=== PATIENT | female | born 1935 | race Caucasian/White ===

== ENCOUNTER → 2016-10-09 | Outpatient (CLI) | payer BC ==
[2016-10-09 15:32] LABS: BLOOD UREA NITROGEN 14 mg/dl (7-18); BUN/CREATININE RATIO 22.3 (10-20); CALCIUM 8.8 mg/dl (8.5-10.1); CARBON DIOXIDE 29 mmol/L (21-32); CHLORIDE 101 mmol/L (98-107); CREATININE 0.62 mg/dl (0.60-1.20); GLUCOSE 90 mg/dl (70-99); POTASSIUM 4.2 mmol/L (3.5-5.1); SODIUM 138 mmol/L (136-145)
== END | disposition home or self-care (01) ==
LOC: C.LABBC 11:54
PROVIDERS: ATTEND Internal Medicine Geriatric Medicine
DX: I10 Essential (primary) hypertension (principal)

== ENCOUNTER → 2016-10-13 | Outpatient (CLI) | payer BC ==
--- NOTE | 2016-10-13 11:51 | DIAGNOSTIC IMAGING REPORT ---
Right upper quadrant ultrasound BILIARY ABDOMEN LIMITED CLINICAL HISTORY: I73.9 Claudication Try to schedule all US around the same time pl TECHNIQUE: Ultrasound COMPARISON STUDY: 05/04/2016 FINDINGS: Similar appearance to the gallbladder. Combination of polyps sludge in adenomyomatosis. No pericholecystic fluid. A 1.3 cm polyp and/or sludge ball is present which is unchanged. Ductal system is unremarkable. Liver is homogeneous. Pancreas is unremarkable. Right kidney is negative for hydronephrosis. Several cysts are present measuring up to 2.8 cm. IMPRESSION: 1. Unchanging abnormal gallbladder. 2. Combination of polypoid change, sludge balls, and adenomyomatosis unchanged compared to the prior study. 3. Normal caliber bile ducts. 4. Several right renal cysts stable from the prior exam. Electronically signed by: Papo Coronado M.D. 10/13/2016 11:49 AM Dictated Date/Time: 10/13/2016 11:45 AM
--- NOTE | 2016-10-13 12:49 | DIAGNOSTIC IMAGING REPORT ---
ULTRASOUND ART DOP LOWER EXT BILAT CLINICAL HISTORY: I73.9 Claudication Try to schedule all US around the same time pl claudication COMPARISON STUDY: None FINDINGS: Real-time as well as Doppler evaluation of the arterial structures of the lower legs was performed. Waveforms are triphasic throughout. Velocity characteristics are unremarkable. Moderate arterial sclerotic changes of the right leg. Waveforms are biphasic throughout. Velocity characteristics are unremarkable. There are monophasic waveforms in dampened flow characteristics of the entire left leg. Suggests inflow disease. The following blood pressure indices were obtained. On the right, posterior tibial is 0.89 and dorsalis pedis is 0.96. On the left, posterior tibial is 0.40 and dorsalis pedis is 0.41. IMPRESSION: 1. Moderate multilevel are clear arterial occlusive change of the right leg with no significant or high-grade stenotic process. 2. Dampened flow throughout the arterial structures of the left leg suggesting a combination of inflow disease as well as significant multilevel arterial occlusive change Electronically signed by: Papo Coronado M.D. 10/13/2016 12:47 PM Dictated Date/Time: 10/13/2016 12:40 PM
== END | disposition home or self-care (01) ==
LOC: C.ULTR 11:07
PROVIDERS: ATTEND Internal Medicine Geriatric Medicine
DX: I73.9 Peripheral vascular disease, unspecified (principal); R10.9 Unspecified abdominal pain; K82.4 Cholesterolosis of gallbladder; D13.5 Benign neoplasm of extrahepatic bile ducts; N28.1 Cyst of kidney, acquired

== ENCOUNTER → 2017-02-16 | Outpatient (CLI) | payer BC ==
[2017-02-16 17:17] LABS: ALT/SGPT 30 U/L (12-78); AST/SGOT 43 U/L (15-37); BLOOD UREA NITROGEN 12 mg/dl (7-18); BUN/CREATININE RATIO 21.9 (10-20); CALCIUM 8.7 mg/dl (8.5-10.1); CARBON DIOXIDE 29 mmol/L (21-32); CHLORIDE 103 mmol/L (98-107); CREATININE 0.56 mg/dl (0.60-1.20); GLUCOSE 86 mg/dl (70-99); POTASSIUM 3.9 mmol/L (3.5-5.1); SODIUM 137 mmol/L (136-145)
[2017-02-16 17:20] LABS: ALB/GLOB RATIO 0.8 (0.9-2); ALKALINE PHOSPHATASE 80 U/L (45-117); CHOLESTEROL 166 mg/dl (0-200); CHOLESTEROL/HDL RATIO 2.2; HDL CHOLESTEROL 76 mg/dl; LDL CHOLESTEROL CALCULATED 70 mg/dl; TRIGLYCERIDES 102 mg/dl (0-150); VERY LOW DENSITY LIPOPROT CALC 20 mg/dl
[2017-02-17 07:47] LABS: ESTIMATED AVERAGE GLUCOSE 120 mg/dl; HA1C FLAG Normal (Normal)
== END | disposition home or self-care (01) ==
LOC: C.LABBC 12:51
PROVIDERS: ATTEND Physician Assistant Medical
DX: I10 Essential (primary) hypertension (principal); E78.5 Hyperlipidemia, unspecified; E87.1 Hypo-osmolality and hyponatremia; E55.9 Vitamin D deficiency, unspecified; R73.9 Hyperglycemia, unspecified

== ENCOUNTER → 2017-02-19 | Outpatient (CLI) | payer BC ==
--- NOTE | 2017-02-20 14:35 | MAMMOGRAPHY REPORT ---
BILATERAL DIGITAL SCREENING MAMMOGRAM WITH CAD: 02/19/2017 CLINICAL HISTORY: Routine screening examination. TECHNIQUE: Bilateral CC and MLO views were obtained. Current study was also evaluated with a Compute r Aided Detection (CAD) system. COMPARISON: Comparison is made to exams dated: 02/18/2016 mammogram, 02/15/2015 mammogram, 02/13/2014 ma mmogram, 02/12/2013 mammogram, 02/12/2012 mammogram, and 02/10/2011 mammogram - [facility] BREAST COMPOSITION: There are scattered areas of fibroglandular density in both breasts. FINDINGS: There are diffuse bilateral benign coarse calcifications. No suspicious mass, architectura l distortion or cluster of microcalcifications is seen. IMPRESSION: ACR BI-RADS CATEGORY 1: NEGATIVE There is no mammographic evidence of malignancy. A 1 year screening mammogram is recommended. The pa tient will receive written notification of the results. Approximately 10% of breast cancers are not detected with mammography. A negative mammographic report should not delay biopsy if a clinically suggestive mass is present. Essence Oleary M.D. ay/:02/19/2017 14:40:39 Nca Certified Concierge: Jane HERNANDEZ(R)(M), [facility] letter sent: Normal 1/2 BI-RADS Code: ACR BI-RADS Category 1: Negative
== END | disposition home or self-care (01) ==
LOC: C.MAMM 14:13
PROVIDERS: ATTEND Internal Medicine Geriatric Medicine
DX: Z12.31 Encounter for screening mammogram for malignant neoplasm of breast (principal)

== ENCOUNTER → 2017-03-07 | Outpatient (CLI) | payer BC ==
[~2017-03-07] MED LIST: GADAVIST IV PRN
--- NOTE | 2017-03-07 13:22 | DIAGNOSTIC IMAGING REPORT ---
LUMBAR SPINE COMBINATION CLINICAL HISTORY: 81 years-old Female with M48.06 Neurogenic claudication. Patient complains of low back and leg pain with occasional numbness. COMPARISON: CT abdomen and pelvis 05/17/2016. TECHNIQUE: Multiplanar, multi sequence MRI of the lumbar spine was performed both with and without the use of 6 mL Gadavist. FINDINGS: Signal within the cord is within normal limits. Conus medullaris terminates at L1. There is 4 mm anterolisthesis of L3 on L4, likely on a degenerative basis. There is no focal compression deformity or fracture identified. Subtle Modic type I endplate changes are noted along the left aspect of L1-L2. No sacral fracture identified. Prominent fatty marrow changes are noted throughout the bones, likely from underlying osteopenia or osteoporosis. Probable perineural root sleeve cyst is seen in the left at S2 measuring up to 1.3 cm in craniocaudal dimension. T2 hyperintense lesions of the kidneys are noted bilaterally, largest in the right measuring up to 3.2 cm in largest the left, 1.7 cm which are nonspecific however would suggest cysts. There is a focal ill-defined area of intermediate T2 signal, decreased T1 signal and avid enhancement involving the posterior inferior right iliac bone, only partially imaged demonstrating ill-defined margins suggesting aggressive nature. Nicely seen on image 30 of series 9. No additional enhancing masses are identified. T12-L1: No central canal or neural foraminal stenosis. Moderate facet arthrosis. L1-L2: Mild intervertebral disc space narrowing with moderate facet arthropathy, small facet effusions and ligamentum flavum redundancy are noted with broad-based posterior disc bulge. No central canal or foraminal narrowing. L2-L3: Mild intervertebral disc space narrowing with posterior spondylitic spurring and circumferential annular disc bulge. Additionally, there is severe facet arthrosis with ligamentum flavum redundancy and small facet effusions. These changes cause mild central canal and mild inferior foraminal stenosis bilaterally. L3-L4: 4 mm anterolisthesis of L3 on L4 secondary to severe facet arthrosis. Additionally, there is ligamentum flavum redundancy with circumferential annular disc bulge and disc uncovering. No significant central canal or foraminal narrowing. L4-L5: Mild intervertebral disc space narrowing with severe facet arthrosis and ligamentum flavum redundancy. Broad-based posterior disc bulge partially effaces the ventral thecal sac without significant central canal narrowing. There is mild inferior right foraminal stenosis. The left foramen is patent. L5-S1: No central canal or neural foraminal stenosis. Severe facet arthropathy IMPRESSION: 1. Partially imaged avidly enhancing lesion of the posterior inferior right iliac bone is nonspecific and appears aggressive. This is new from comparison CT dated 05/17/2016. Differential considerations would include metastasis or multiple myeloma among other etiologies. Further evaluation with a sacral contrast enhanced MRI would be helpful to evaluate extent of the lesion. 2. Multilevel severe facet arthrosis with mild discogenic degenerative changes as detailed above. Findings are most pronounced at the L2-L3 level where there is resultant mild central canal and mild inferior foraminal stenosis bilaterally. 3. Subtle Modic type I endplate degenerative changes are noted along the left aspect of the L1-L2 disc space. 4. Partially imaged T2 hyperintense lesions of the bilateral kidneys suggest cysts. The above report was generated using voice recognition software. It may contain grammatical, syntax or spelling errors. Electronically signed by: Jabier Alvarez M.D. 03/07/2017 1:20 PM Dictated Date/Time: 03/07/2017 12:48 PM
== END | disposition home or self-care (01) ==
LOC: C.MRIBC 11:27
PROVIDERS: ATTEND Internal Medicine Geriatric Medicine
DX: M48.06 Spinal stenosis, lumbar region (principal); M47.816 Spondylosis without myelopathy or radiculopathy, lumbar region

== ENCOUNTER → 2017-03-21 | Outpatient (CLI) | payer BC ==
--- NOTE | 2017-03-21 15:51 | DIAGNOSTIC IMAGING REPORT ---
SACRUM MRI HISTORY: Abnormal lumbar spine MRI. Posterior iliac lesion. TECHNIQUE: Multiplanar multisequence MRI of the posterior pelvis was performed both before and after the intravenous administration of contrast. COMPARISON STUDY: Lumbar spine MRI 03/07/2017. FINDINGS: The visualized osseous structures demonstrate diffuse marrow heterogeneity. There is confirmation of the 3.2 x 1.3 cm T2 hyperintense, T1 hypointense enhancing ill-defined lesion within the right posterior iliac bone. There is no cortical breakthrough or surrounding soft tissue mass at this time. There is suggestion of avascular necrosis within the right femoral head. This only partially visualized on this study. Small right hip effusion. Possible 1.3 cm T2 hyperintense lesion within the right greater trochanter. This is only identified on a single sequence. IMPRESSION: 1. Confirmation of the 3.2 x 1.3 cm enhancing ill-defined lesion within the right posterior iliac bone. There is no cortical breakthrough or surrounding soft tissue mass at this time. This is indeterminate but in the absence of prior surgery this is concerning for a metastatic lesion. 2. There is a possible 1.3 cm T2 hyperintense lesion within the right greater trochanter. This is only partially visualized on this study. A bone scan is recommended for further evaluation of these lesions. 3. 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 Electronically signed by: Tremaine Cedeno M.D. 03/21/2017 3:50 PM Dictated Date/Time: 03/21/2017 3:40 PM
== END | disposition home or self-care (01) ==
LOC: C.MRI 13:22
PROVIDERS: ATTEND Internal Medicine Geriatric Medicine
DX: M53.3 Sacrococcygeal disorders, not elsewhere classified (principal)

== ENCOUNTER → 2017-06-18 | Outpatient (CLI) | payer BC ==
--- NOTE | 2017-06-18 11:58 | DIAGNOSTIC IMAGING REPORT ---
PET/CT SKULL-THIGH CLINICAL HISTORY: MALIGNANT NEOPLASM BONE lymphoma COMPARISON STUDY: Pelvic MRI dated 03/21/2017 FINDINGS: The patient was injected with 14.3 mCi of F 18 labeled FDG. Findings standard induction phase, PET/CT scanning is performed from the skull base to the upper thigh region. Within the neck, there is a focus of increased FDG activity fusing to a 1 cm left-sided parotid nodule. This has an SUV maximum of 2.4. There is also mild asymmetric increased activity in the region of the right posterior nasopharynx. Left mandibular uptake is felt to be secondary to dental disease. Activity within neck is otherwise felt to be physiologic. Within the chest, there is no pathologic axillary mediastinal or hilar activity. There is pulmonary emphysema. There is no pathologic parenchymal activity. There is a focus of increased activity fusing to the right medial clavicle with SUV maximum of 3.7. There is no corresponding CT abnormality. There is a focus of increased activity fusing to the left T11 transverse process. There is no corresponding CT abnormality. Within the abdomen, there is no pathologic hepatic splenic or adrenal activity. There are multiple bilateral renal masses likely representing cysts. There is cholelithiasis. 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 There is a focus of increased FDG activity fusing to the right anterior iliac bone with SUV maximum of 4. There is a focus of increased FDG activity fusing to the right posterior iliac bone with SUV maximum of 2.7. There is a focus of increased FDG activity fusing to the left anterior iliac bone with SUV maximum of 2.3. There is intense focus of increased activity fusing to the left iliac bone adjacent to the SI joint with an SUV max of 6.2. There is also a focus of increased activity fusing to the greater trochanter the right hip with an SUV maximum of 3.9 IMPRESSION: 1. Mild nonspecific increased activity within the right posterior nasopharynx 2. Mildly FDG avid 1 cm left parotid nodule with SUV maximum of 2.4 3. Foci of increased skeletal activity. These involve the right medial clavicle, the left T11 transverse process, both iliac bones, and the greater trochanter the right hip. 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 Electronically signed by: Shaggy Adrian M.D. 06/18/2017 11:57 AM Dictated Date/Time: 06/18/2017 11:38 AM
== END | disposition home or self-care (01) ==
LOC: C.PET 09:09
PROVIDERS: ATTEND Internal Medicine Hematology & Oncology
DX: C41.4 Malignant neoplasm of pelvic bones, sacrum and coccyx (principal)

== ENCOUNTER → 2017-06-20 | Outpatient (CLI) | payer BC ==
[2017-06-20 17:24] LABS: BASO ABS # 0.07 K/uL (0-0.2); COMPLETE YES; EOS % 5.3 %; HEMATOCRIT 39.8 % (37-47); IG% 0.3 %; LYMPH % 33.8 %; LYMPH ABS # 2.41 K/uL (1.2-3.4); MEAN CORPUSCULAR HEMOGLOBIN 32.2 pg (25-34); MEAN CORPUSCULAR HGB CONC 34.7 g/dl (32-36); MEAN PLATELET VOLUME 10.3 fL (7.4-10.4); MONO % 8.7 %; NEUT % 50.9 %; PLATELET COUNT 202 K/uL (130-400); RED BLOOD COUNT 4.28 M/uL (4.2-5.4); WHITE BLOOD COUNT 7.13 K/uL (4.8-10.8)
[2017-06-20 17:33] LABS: ALT/SGPT 26 U/L (12-78); AST/SGOT 46 U/L (15-37); BLOOD UREA NITROGEN 14 mg/dl (7-18); BUN/CREATININE RATIO 21.1 (10-20); CALCIUM 9.2 mg/dl (8.5-10.1); CARBON DIOXIDE 27 mmol/L (21-32); CHLORIDE 101 mmol/L (98-107); CREATININE 0.65 mg/dl (0.60-1.20); GLUCOSE 94 mg/dl (70-99); POTASSIUM 3.7 mmol/L (3.5-5.1); SODIUM 134 mmol/L (136-145)
[2017-06-20 17:36] LABS: ALB/GLOB RATIO 0.8 (0.9-2); ALKALINE PHOSPHATASE 84 U/L (45-117)
== END | disposition home or self-care (01) ==
LOC: C.LABBC 13:20
PROVIDERS: ATTEND Internal Medicine Hematology & Oncology
DX: C41.4 Malignant neoplasm of pelvic bones, sacrum and coccyx (principal)

== ENCOUNTER → 2017-08-16 | Outpatient (CLI) | payer BC ==
--- NOTE | 2017-08-16 18:10 | DIAGNOSTIC IMAGING REPORT ---
MRI OF THE LUMBAR SPINE COMBO CLINICAL HISTORY: Low back pain radiating to the right lower extremity. COMPARISON STUDY: MRI of lumbar spine dated 03/07/2017. PET/CT dated 06/18/2017. TECHNIQUE: MRI of the lumbar spine is performed utilizing various T1 and T2-weighted sequences in the axial and sagittal planes. Contrast-enhanced sequences are acquired following the IV administration of 6.5 mL of Gadavist. The examination is degraded by motion artifact. FINDINGS: Lumbar spine: Marrow signal intensity is heterogeneous. Significant fatty marrow change is noted. No destructive bony lesion is clearly identified involving the lumbar spine. The transverse and spinous processes are intact as imaged. Vertebral body height is maintained throughout the lumbar spine. There is grade 1 anterolisthesis at L3-L4. Alignment is otherwise preserved. Tiny anterior osteophytes are seen throughout. There is no evidence of spondylolysis. Intervertebral discs: Degenerative disc desiccation is seen throughout the lumbar spine. Mild loss of height is seen at L3-L4. Spinal cord: The visualized spinal cord is normal in morphology and signal intensity. The conus medullary terminates at the level of L1. The nerve roots of the cauda equina are normal in morphology. No abnormal enhancement is identified on the postcontrast images. L1-L2: There is minimal disc bulge. The central canal and neural foramina are patent. L2-L3: There is a small disc bulge. The central canal and neural foramina are patent. There is minimal bilateral subarticular stenosis. L3-L4: There is a small posterior disc bulge. In conjunction with anterolisthesis, there is minimal acquired compromise of the central canal at this level with a minimum AP diameter of 9 mm. The neural foramina are patent. Facet arthropathy is of no consequence. L4-L5: The central canal is patent, as are the neural foramina. Facet arthropathy is of no confluence. L5-S1: The central canal and neural foramina are patent. Sacrum: The visualized sacrum demonstrates fatty marrow change. On the postcontrast images, there are avidly enhancing lesions identified within the medial left ilium along the aspect of the sacroiliac joint and the peripheral aspect of the medial right ilium. FDG avid lesions were seen at this site on the recent PET examination and the appearance is highly concerning for metastatic disease. 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 Soft tissues: There is fatty atrophy of the paraspinous musculature. There is ectasia of the abdominal aorta. The visualized kidneys demonstrate cortical atrophy. Numerous cysts are suggested in both kidneys. No retroperitoneal adenopathy is identified. IMPRESSION: 1. No destructive bony lesion is suggested involving the lumbar spine. 2. Mild lumbosacral spondylosis as detailed above. This has not significantly changed from 03/07/2017. 3. Destructive bony lesions are again suggested within the medial cyril bilaterally. These were also seen by PET on 06/18/2017. Dictated: 08/16/2017 5:39 PM Transcribed: 08/16/2017 6:09 PM PAOLO_Stephania Electronically signed by: Hussein Marcus M.D. 08/16/2017 6:21 PM Dictated Date/Time: 08/16/2017 5:39 PM
== END | disposition home or self-care (01) ==
LOC: C.MRI 16:20
PROVIDERS: ATTEND Internal Medicine Hematology & Oncology
DX: M54.16 Radiculopathy, lumbar region (principal)

== ENCOUNTER → 2017-09-21 | Outpatient (CLI) | payer BC ==
--- NOTE | 2017-09-21 12:30 | DIAGNOSTIC IMAGING REPORT ---
R HIP UNILATERAL 2 VIEWS CLINICAL HISTORY: Right hip pain. Lymphoma with skeletal involvement. COMPARISON: PET/CT June 18, 2017 and pelvis MRI March 21, 2017.. FINDINGS: There is marked joint space narrowing of the right hip. There is flattening of the right femoral head with extensive osteophytosis. No fracture or suspicious lesion is identified by radiography. IMPRESSION: 1. Severe osteoarthritis of the right hip 2. No fracture or suspicious lesion by radiography. Electronically signed by: Jim Doan M.D. 09/21/2017 12:29 PM Dictated Date/Time: 09/21/2017 12:26 PM
== END | disposition home or self-care (01) ==
LOC: C.RADBC 11:12
PROVIDERS: ATTEND Internal Medicine Hematology & Oncology
DX: M25.551 Pain in right hip (principal); M16.11 Unilateral primary osteoarthritis, right hip

== ENCOUNTER → 2017-11-23 | Outpatient (CLI) | payer BC ==
[2017-11-23 13:51] LABS: BASO ABS # 0.07 K/uL (0-0.2); EOS % 6.5 %; EOS ABS # 0.46 K/uL (0-0.5); HEMATOCRIT 39.6 % (37-47); HEMOGLOBIN 13.7 g/dL (12.0-16.0); IG# 0.01 K/uL (0.00-0.02); LYMPH ABS # 1.77 K/uL (1.2-3.4); MEAN CORPUSCULAR HEMOGLOBIN 30.8 pg (25-34); MEAN CORPUSCULAR HGB CONC 34.6 g/dl (32-36); MONO % 9.3 %; MONO ABS # 0.66 K/uL (0.11-0.59); NEUT % 58.1 %; NEUT ABS # 4.12 K/uL (1.4-6.5); PLATELET COUNT 222 K/uL (130-400); RED CELL DISTRIBUTION WIDTH SD 45.4 fL (36.4-46.3); WHITE BLOOD COUNT 7.09 K/uL (4.8-10.8)
[2017-11-23 14:07] LABS: ALBUMIN 3.8 gm/dl (3.4-5.0); ALKALINE PHOSPHATASE 65 U/L (45-117); ALT/SGPT 25 U/L (12-78); AST/SGOT 38 U/L (15-37); BLOOD UREA NITROGEN 11 mg/dl (7-18); CALCIUM 9.1 mg/dl (8.5-10.1); CARBON DIOXIDE 27 mmol/L (21-32); CREATININE 0.59 mg/dl (0.60-1.20); GLUCOSE 95 mg/dl (70-99); POTASSIUM 4.1 mmol/L (3.5-5.1); SODIUM 135 mmol/L (136-145); TOTAL PROTEIN 8.1 gm/dl (6.4-8.2)
== END | disposition home or self-care (01) ==
LOC: C.LABBC 11:17
PROVIDERS: ATTEND Internal Medicine Hematology & Oncology
DX: C41.4 Malignant neoplasm of pelvic bones, sacrum and coccyx (principal)

== ENCOUNTER 2022-07-15 12:04 | Inpatient (IN) ==
[2022-07-15] MEDS ORDERED: SODIUM CHLORIDE 0.9% 500 ML IV SCH (12:15)
--- NOTE | 2022-07-15 12:16 | Emergency Department Note ---
Impression & Plan Weakness, Compression fx, lumbar spine, Elevated troponin I level ED Provider Note NAME: YOJANA ZAPIEN AGE: 86 SEX: F : 1935 ARRIVES VIA: Ambulance INFORMANT: Patient, EMS ED PROVIDER(S): Salvatore Hess DO CHIEF COMPLAINT: Fall HPI: The patient is an 86-year-old female who presented from a personal long term for an evaluation after a fall. The patient states that she was trying to get out of a chair when she lowered herself to the ground. She states that she did not have a significant fall but states when she was on the floor she could not stand up. She notices very severe weakness in both lower extremities. She denies having any headache. She denies having any neck pain. She denies having any chest pain. The nursing staff found her on the floor this morning and called 911. The patient was able to stand with assistance but could not walk. She normally walks with a walker. She is not been seen by her primary care physician prior to coming to the emergency department. The patient did not take her morning medications. She states that she was able to crawl around on the floor but could not stand. The patient denies having any lacerations. She denies having any dysuria or frequency. She denies having any recent fevers. ROS: See above HPI for pertinent positives & negatives. A total of 10 systems reviewed and were otherwise negative. PAST MEDICAL HISTORY: See Below PAST SURGICAL HISTORY: See Below FAMILY HISTORY: See Below SOCIAL HISTORY: See Below HOME MEDICATIONS: See Below ALLERGIES: See Below VITALS: See Below PHYSICAL EXAMINATION: GENERAL: The patient is awake and alert. She is nonanxious appearing. EYES: The conjunctivae are clear. The pupils are round and reactive. EARS, NOSE, MOUTH AND THROAT: The nose is without any evidence of any deformity. NECK: The neck is nontender and supple. RESPIRATORY: Normal respiratory effort is noted there is no evidence of wheezing rhonchi or rales CARDIOVASCULAR: Regular rate and rhythm was noted to auscultation. Systolic murmur was suggested. GASTROINTESTINAL: The abdomen is soft. Abdomen is nontender. BACK: Slow lumbar tenderness was noted to palpation. Range of motion appears intact. MUSCULOSKELETAL/EXTREMITIES: There is no evidence of gross deformity full range of motion is noted in the hips and shoulders. SKIN: Skin was warm and dry. Pedal edema was noted bilaterally. NEUROLOGIC: Patient is awake alert and oriented x3. Strength is diminished in both lower extremities. The patient is unable to hold either leg off the bed for greater than 5 seconds. MEDICAL DECISION MAKING: The patient is an 86-year-old female who presented to the emergency department for an evaluation of back pain. The patient had a very minimal fall last evening. She was unable to stand and had significant back pain when she came in. The patient was reevaluated multiple times. She does have generalized weakness and needs a walker normally. Her radiographic studies appear to be consistent with a significant lumbar compression fracture. I discussed the patient's laboratory and radiographic studies with her. Given her findings I also [facility] They have agreed to evaluate the patient in the emergency department for further management and disposition. Ultimately the patient was a better candidate for inpatient management given the degree of pain as well as the findings. Triage Nursing notes reviewed. Prior medical records reviewed Vital Signs: reviewed and remarkable for elevated blood pressure and tachycardia. Differential diagnosis: Infection, dehydration, metabolic abnormality, hypo/hyperglycemia, electrolyte disturbance, anemia, hypoxia, cardiac sources, intracerebral event, toxicologic, neurologic, as well as other pathologies. ER treatment provided: See below Diagnostics interpreted by me: ECG: EKG was obtained in the emergency department. My interpretation is sinus tachycardia 101 bpm. There is no ectopy. LVH was noted by voltage criteria. This was compared to a tracing from February 03, 1998. No significant changes were noted. Cardiac Monitoring: An order was placed for continuous cardiac monitoring. The monitor shows a rate of 101 bpm with sinus tachycardia. Laboratory studies: As stated above and show below. Imaging studies: See below. I did independently review the patient's radiographic studies Radiographic imaging was reviewed by myself Consultation(s): I discussed this case with Dr. Dudley who is [facility]. Past Med/Surg History Medical History (Updated 07/15/22 @ 16:20 by Emily Bae PA-C) Basal cell carcinoma (BCC) Carotid artery stenosis COPD (chronic obstructive pulmonary disease) Degenerative arthritis of knee, bilateral History of elevated lipids History of macular degeneration HTN (hypertension) Hx of anxiety disorder Lymphoma Malignant neoplasm bone Non-Hodgkin lymphoma Osteoarthritis Psoriasis Surgical History History of hysterectomy Social History Smoking Status: Former smoker Hx Alcohol Use: Yes (one a day, scotch and soda) Hx Substance Use: No Communication Ability: Effective Visual Impairment: Severely Limited Hearing Ability: Normal Community Relations Representative Required: No Beliefs That Will Affect Care: None marital status: Current Living Situation: Alone Feels Safe at Home: Yes and No Allergies Allergies Allergy/AdvReac Type Severity Reaction Status Date / Time No Known Allergies Allergy Unverified 07/15/22 16:16 Home Meds Home Medications Medication Instructions Recorded Confirmed atorvastatin 40 mg tablet (Lipitor) 40 mg PO DAILY 04/22/18 07/15/22 cholecalciferol (vitamin D3) 25 3,000 units PO DAILY 04/22/18 07/15/22 mcg (1,000 unit) capsule nebivolol 10 mg tablet (Bystolic) 10 mg PO DAILY 04/22/18 07/15/22 tramadol 50 mg tablet 50 mg PO QID 04/22/18 07/15/22 acetaminophen 500 mg tablet 1,000 mg PO QID 07/15/22 07/15/22 (Tylenol Extra Strength) albuterol sulfate 90 mcg/actuation 2 puff inhalation Q6 PRN 07/15/22 07/15/22 aerosol inhaler wheezing,SOB,chest tightness alprazolam 0.5 mg tablet 0.5 mg PO BID 07/15/22 07/15/22 amlodipine 5 mg-benazepril 40 mg 1 cap PO DAILY 07/15/22 07/15/22 capsule gabapentin 100 mg capsule 100 mg PO DAILY PRN Itching 07/15/22 07/15/22 gabapentin 100 mg capsule 100 mg PO HS 07/15/22 07/15/22 spironolactone 25 mg tablet 12.5 mg PO DAILY 07/15/22 07/15/22 Results & Data (ED) Vital Signs Vital Signs - 24 hr 07/15/22 11:55 07/15/22 12:51 07/15/22 14:31 Pulse Rate [Apical] 99 H Respiratory Rate 14 Respiratory Effort / Characteristics Respiratory Depth Blood Pressure [Right Arm] 213/76 H Blood Pressure Mean [Right Arm] 121 Pulse Oximetry 96 96 Oxygen Delivery Method Room Air Sepsis Recent Fever Within 48 Hours No Sepsis New/Unexplained Change in Mental Status No Sepsis Action Taken by Nursing No Action Required 07/15/22 16:00 Pulse Rate [Apical] 101 H Respiratory Rate 16 Respiratory Effort / Characteristics Non-Labored Respiratory Depth Normal Blood Pressure [Right Arm] 176/68 H Blood Pressure Mean [Right Arm] 104 Pulse Oximetry 96 Oxygen Delivery Method Room Air Sepsis Recent Fever Within 48 Hours Sepsis New/Unexplained Change in Mental Status Sepsis Action Taken by Retirement Medications Current Medication List: was personally reviewed by me Laboratory Data Attestation: I reviewed the patient's lab results. 07/15/22 Unknown 07/15/22 Unknown Lab Results 07/15/22 07/15/22 07/15/22 Range/Units 14:20 14:40 15:43 WBC (4.8-10.8) K/ul RBC (3.93-5.22) M/uL Hgb (12.0-16.0) g/dl Hct (34.1-44.9) % MCV (80.0-100.0) fL MCH (25.0-34.0) pg MCHC (32.0-36.0) g/dL RDW Std Deviation (36.4-46.3) fL RDW Coeff of Humphrey (11.5-14.5) % Plt Count (130-400) K/uL MPV (9.4-12.3) fL Immature Gran % (Auto) % Neut % (Auto) % Lymph % (Auto) % [place] % (Auto) % Eos % (Auto) % Baso % (Auto) % Neut # (Auto) (1.4-6.5) K/uL Lymph # (Auto) (1.2-3.4) K/uL [place] # (Auto) (0.24-0.82) K/uL Eos # (Auto) (0-0.50) K/uL Baso # (Auto) (0-0.2) K/uL Immature Gran # (Auto) (0.00-0.02) K/uL PT 10.4 (9.0-12.0) Seconds INR 1.0 (0.9-1.1) APTT 30.2 (21.0-31.0) Seconds PTT Ratio 1.1 Sodium (136-145) mmol/L Potassium (3.5-5.1) mmol/L Chloride (98-107) mmol/L Carbon Dioxide (21-32) mmol/L Anion Gap (3-11) BUN (6-23) mg/dl Creatinine (0.6-1.2) mg/dl Est Cr Clr Drug Dosing ml/min Est GFR ( Amer) ml/min Est GFR (Non-Af Amer) ml/min BUN/Creatinine Ratio (10-20) Glucose (70-99(Fasting)) mg/dl Calcium (8.5-10.1) mg/dl Magnesium (1.7-2.4) mg/dl Total Bilirubin (0.2-1.0) mg/dl AST (13-39) U/L ALT (7-52) U/L Alkaline Phosphatase (34-104) U/L Total Creatine Kinase (26-192) U/L Troponin I High Sens 33.1 H (0-14) pg/ml Total Protein (6.0-8.3) gm/dl Albumin (3.4-5.0) gm/dl Globulin (2.5-4.0) gm/dl Albumin/Globulin Ratio (0.9-2) TSH (0.300-4.500) uIu/ml Urine Color Urine Appearance (Clear) Urine pH (4.5-7.5) Ur Specific Tobias (1.000-1.030) Urine Protein (Negative) Urine Glucose (UA) (Negative) Urine Ketones (Negative) Urine Blood (Negative) Urine Nitrite (Negative) Urine Bilirubin (Negative) Urine Urobilinogen (Negative) Ur Leukocyte Esterase (Negative) Urine WBC (Auto) (0-5) /hpf Urine RBC (Auto) (0-4) /hpf U Hyaline Cast (Auto) (0-5) /lpf U Epithel Cells (Auto) (0-5) /lpf Urine Bacteria (Auto) (Negative) SARS-CoV-2, RNA, NAAT NEGATIVE (NEGATIVE) 07/15/22 07/15/22 07/15/22 Range/Units Unknown Unknown Unknown WBC 7.42 (4.8-10.8) K/ul RBC 3.49 L (3.93-5.22) M/uL Hgb 10.9 L (12.0-16.0) g/dl Hct 31.0 L (34.1-44.9) % MCV 88.8 (80.0-100.0) fL MCH 31.2 (25.0-34.0) pg MCHC 35.2 (32.0-36.0) g/dL RDW Std Deviation 44.1 (36.4-46.3) fL RDW Coeff of Humphrey 13.7 (11.5-14.5) % Plt Count 219 (130-400) K/uL MPV 9.3 L (9.4-12.3) fL Immature Gran % (Auto) 0.4 % Neut % (Auto) 83.6 % Lymph % (Auto) 8.5 % [place] % (Auto) 7.1 % Eos % (Auto) 0.3 % Baso % (Auto) 0.1 % Neut # (Auto) 6.20 (1.4-6.5) K/uL Lymph # (Auto) 0.63 L (1.2-3.4) K/uL [place] # (Auto) 0.53 (0.24-0.82) K/uL Eos # (Auto) 0.02 (0-0.50) K/uL Baso # (Auto) 0.01 (0-0.2) K/uL Immature Gran # (Auto) 0.03 H (0.00-0.02) K/uL PT Cancelled (9.0-12.0) Seconds INR Cancelled (0.9-1.1) APTT Cancelled (21.0-31.0) Seconds PTT Ratio Cancelled Sodium 132 L (136-145) mmol/L Potassium 5.1 (3.5-5.1) mmol/L Chloride 99 (98-107) mmol/L Carbon Dioxide 23 (21-32) mmol/L Anion Gap 10 (3-11) BUN 28 H (6-23) mg/dl Creatinine 0.62 (0.6-1.2) mg/dl Est Cr Clr Drug Dosing 59.5 ml/min Est GFR ( Amer) 93.3 ml/min Est GFR (Non-Af Amer) 80.5 ml/min BUN/Creatinine Ratio 45.2 H (10-20) Glucose 144 H (70-99(Fasting)) mg/dl Calcium 10.1 (8.5-10.1) mg/dl Magnesium 1.9 (1.7-2.4) mg/dl Total Bilirubin 0.7 (0.2-1.0) mg/dl AST 66 H (13-39) U/L ALT 21 (7-52) U/L Alkaline Phosphatase 80 (34-104) U/L Total Creatine Kinase 682 H (26-192) U/L Troponin I High Sens 30.7 H (0-14) pg/ml Total Protein 7.6 (6.0-8.3) gm/dl Albumin 4.3 (3.4-5.0) gm/dl Globulin 3.3 (2.5-4.0) gm/dl Albumin/Globulin Ratio 1.3 (0.9-2) TSH (0.300-4.500) uIu/ml Urine Color Urine Appearance (Clear) Urine pH (4.5-7.5) Ur Specific Tobias (1.000-1.030) Urine Protein (Negative) Urine Glucose (UA) (Negative) Urine Ketones (Negative) Urine Blood (Negative) Urine Nitrite (Negative) Urine Bilirubin (Negative) Urine Urobilinogen (Negative) Ur Leukocyte Esterase (Negative) Urine WBC (Auto) (0-5) /hpf Urine RBC (Auto) (0-4) /hpf U Hyaline Cast (Auto) (0-5) /lpf U Epithel Cells (Auto) (0-5) /lpf Urine Bacteria (Auto) (Negative) SARS-CoV-2, RNA, NAAT (NEGATIVE) 07/15/22 07/15/22 Range/Units Unknown Unknown WBC (4.8-10.8) K/ul RBC (3.93-5.22) M/uL Hgb (12.0-16.0) g/dl Hct (34.1-44.9) % MCV (80.0-100.0) fL MCH (25.0-34.0) pg MCHC (32.0-36.0) g/dL RDW Std Deviation (36.4-46.3) fL RDW Coeff of Humphrey (11.5-14.5) % Plt Count (130-400) K/uL MPV (9.4-12.3) fL Immature Gran % (Auto) % Neut % (Auto) % Lymph % (Auto) % [place] % (Auto) % Eos % (Auto) % Baso % (Auto) % Neut # (Auto) (1.4-6.5) K/uL Lymph # (Auto) (1.2-3.4) K/uL [place] # (Auto) (0.24-0.82) K/uL Eos # (Auto) (0-0.50) K/uL Baso # (Auto) (0-0.2) K/uL Immature Gran # (Auto) (0.00-0.02) K/uL PT (9.0-12.0) Seconds INR (0.9-1.1) APTT (21.0-31.0) Seconds PTT Ratio Sodium (136-145) mmol/L Potassium (3.5-5.1) mmol/L Chloride (98-107) mmol/L Carbon Dioxide (21-32) mmol/L Anion Gap (3-11) BUN (6-23) mg/dl Creatinine (0.6-1.2) mg/dl Est Cr Clr Drug Dosing ml/min Est GFR ( Amer) ml/min Est GFR (Non-Af Amer) ml/min BUN/Creatinine Ratio (10-20) Glucose (70-99(Fasting)) mg/dl Calcium (8.5-10.1) mg/dl Magnesium (1.7-2.4) mg/dl Total Bilirubin (0.2-1.0) mg/dl AST (13-39) U/L ALT (7-52) U/L Alkaline Phosphatase (34-104) U/L Total Creatine Kinase (26-192) U/L Troponin I High Sens (0-14) pg/ml Total Protein (6.0-8.3) gm/dl Albumin (3.4-5.0) gm/dl Globulin (2.5-4.0) gm/dl Albumin/Globulin Ratio (0.9-2) TSH 0.611 (0.300-4.500) uIu/ml Urine Color Yellow Urine Appearance Clear (Clear) Urine pH 5.5 (4.5-7.5) Ur Specific Tobias 1.012 (1.000-1.030) Urine Protein 2+ H (Negative) Urine Glucose (UA) Negative (Negative) Urine Ketones Negative (Negative) Urine Blood Trace H (Negative) Urine Nitrite Negative (Negative) Urine Bilirubin Negative (Negative) Urine Urobilinogen Negative (Negative) Ur Leukocyte Esterase Negative (Negative) Urine WBC (Auto) 0 (0-5) /hpf Urine RBC (Auto) 0-4 (0-4) /hpf U Hyaline Cast (Auto) 1-5 (0-5) /lpf U Epithel Cells (Auto) 0-5 (0-5) /lpf Urine Bacteria (Auto) Negative (Negative) SARS-CoV-2, RNA, NAAT (NEGATIVE) Administered Medications Discontinued Medications Sodium Chloride (Nss) 500 mls @ 999 mls/hr IV .Q31M [place] Stop: 07/15/22 12:45 Last Infusion: 07/15/22 15:31 Dose: 0 mls/hr Documented By: Admin: 07/15/22 12:55 Dose: 999 mls/hr Documented By: AIDE Imaging Data Radiologist's Impression: Cervical Spine CT 07/15/22 12:11 CT cervical spine wo con CT DOSE: 1920.64 mGy.cm CLINICAL HISTORY: 86 years-old Female with fall. Acute neck pain status post fall COMPARISON: Head CT of same day TECHNIQUE: Multiple axial CT images of the cervical spine were obtained without contrast. A dose lowering technique was utilized adhering to the principles of ALARA. FINDINGS: Demineralized appearance the bones. Multilevel moderate to advanced degenerative changes. Straightening of the normal cervical lordosis. 3 mm anterolisthesis C4 on C5, likely degenerative related. Multilevel neural foraminal narrowing. The cervical soft tissues appear unremarkable. Emphysema with apical scarring. Trace left mastoid effusion. No pneumothorax. IMPRESSION: No acute cervical spine fracture or subluxation identified. ACT 112: Negative or not required by law. The above report was generated using voice recognition software. It may contain grammatical, syntax or spelling errors. Electronically signed by: Maurizio Alvarez M.D. 07/15/2022 2:28 PM Chest X-Ray 07/15/22 12:11 XR chest 1V portable HISTORY: 86 years-old Female weakness acute weakness COMPARISON: 03/20/2022 TECHNIQUE: AP view of the chest FINDINGS: The cardiomediastinal and hilar silhouettes are within normal limits. Emphysema with chronic fibrotic change. Stable 11 mm right middle lobe pulmonary nodule. Thoracolumbar compression deformities are again noted. IMPRESSION: 1. Cardiomegaly without acute process. 2. Emphysema with chronic fibrotic changes. 3. Stable 11 mm right middle lobe pulmonary nodule. ACT 112: Negative or not required by law. The above report was generated using voice recognition software. It may contain grammatical, syntax or spelling errors. Electronically signed by: Maurizio Alvarez M.D. 07/15/2022 1:[address] 07/15/22 12:11 CT head/brain wo con CLINICAL HISTORY: 86 years-old Female with fall. Acute head injury status post fall TECHNIQUE: Multiple axial CT images of the head were obtained without contrast. A dose lowering technique was utilized adhering to the principles of ALARA. COMPARISON: CT cervical spine of same day. FINDINGS: No acute intracranial hemorrhage, midline shift, intracranial mass, hydrocephalus, territorial ischemia or abnormal extra-axial collection. Involutional changes with chronic microvascular ischemic disease. Mildly motion degraded exam. The calvarium is intact. Trace left mastoid effusion. The right air cells are clear. Hypoplastic frontal sinuses. Unremarkable soft tissues. IMPRESSION: No acute intracranial abnormality or calvarial fracture. ACT 112: Negative or not required by law. The above report was generated using voice recognition software. It may contain grammatical, syntax or spelling errors. Electronically signed by: Maurizio Alvarez M.D. 07/15/2022 2:[address] 07/15/22 12:11 CT lumbar spine wo con HISTORY: 86 years-old Female fall acute low back pain status post fall COMPARISON: Chest CT 11/26/2020, CT abdomen and pelvis 04/15/2019 TECHNIQUE: Multiple axial CT images of the lumbar spine were obtained without the use of IV contrast. A dose lowering technique was used consistent with the principals of ALARA. FINDINGS: Extensive atherosclerosis of the abdominal aorta with infrarenal fusiform ane urysm dilation, 3.2 x 2.9 cm. This previously measured 2.7 cm on the 2018 comparison. Extensive atherosclerotic plaque of the branch vessels. Cysts of the kidneys. Indeterminate density 1.1 cm lesion of the superior pole left kidney. Probable lipoma of the duodenum, 1.4 cm. No paravertebral edema. Evaluation central canal and neuroforamina is limited secondary to CT technique. Severe L4- L5 central canal stenosis secondary to ligamentum thickening, facet arthrosis and and L5 retropulsion. Moderate L3-L4 central canal stenosis secondary to annular disc bulge, ligamentum thickening with severe facet arthrosis. There is a least mild multilevel neural foraminal narrowing. Transitional lumbosacral anatomy. For the purposes of this exam, 6 lumbar segments will be described. 20% superior endplate compression at L1 without retropulsion, unchanged. 50% superior endplate compression at L2 with 2 mm retropulsion is also chronic. 50% superior endplate compression at L5. There is unchanged 5 mm anterolisthesis. 3 mm retropulsion. Finding is new from the 2019 study. Severe multilevel facet arthrosis with moderate spondylitic spurring. Mostly mild multilevel intervertebral disc space narrowing with areas of vacuum disc phenomenon. Transitional lumbosacral anatomy. No sacral insufficiency fracture identified. SI joints and iliac bones appear intact. IMPRESSION: 1. Age-indeterminate 50% superior endplate compression deformity of L5 with mild retropulsion, new from 04/15/2019. 2. Severe central canal stenosis at L4-L5 has mildly progressed from the 04/15/2019 exam. 3. Chronic L1 and L2 compression deformities. 4. Transitional lumbosacral anatomy with 6 lumbar vertebral segments described. ACT 112: Negative or not required by law. The above report was generated using voice recognition software. It may contain grammatical, syntax or spelling errors. Electronically signed by: Maurizio Alvarez M.D. 07/15/2022 2:41 PM Discharge Plan Visit Data Chief Complaint: Weakness Stated Complaint: BACK PAIN ED Provider: Salvatore Hess Discharge Problem: Weakness, Compression fx, lumbar spine, Elevated troponin I level Patient Disposition: Being Evaluated by Hospitalist Discharge Instructions Interventions: ED Discharge Assessment Last Done: 07/15/22 16:26 Forms Stand Alone Forms: My [employer] Prescriptions Prescriptions: No Action atorvastatin [Lipitor] 40 mg tablet 40 mg PO DAILY tramadol 50 mg tablet 50 mg PO QID Label Comments: take 1-2 tabs up to 4 times daily as needed for pain cholecalciferol (vitamin D3) 1,000 unit capsule 3,000 units PO DAILY nebivolol [Bystolic] 10 mg tablet 10 mg PO DAILY alprazolam 0.5 mg tablet 0.5 mg PO BID spironolactone 25 mg tablet 12.5 mg PO DAILY gabapentin 100 mg capsule 100 mg PO HS gabapentin 100 mg capsule 100 mg PO DAILY PRN (Reason: Itching) Rx Instructions: may take during the day for itching albuterol sulfate 90 mcg/actuation HFA aerosol inhaler 2 puff INHALATION Q6 PRN (Reason: wheezing,SOB,chest tightness) amlodipine-benazepril 5-40 mg capsule 1 cap PO DAILY acetaminophen [Tylenol Extra Strength] 500 mg Tablet 1,000 mg PO QID Rx Instructions: take with tramadol Referrals Referrals: Bambi Salgado [Primary Care Provider] -
[2022-07-15 12:43] LABS: Basophils # (auto) 0.01 K/uL (0-0.2); Basophils % (auto) 0.1 %; Eosinophils # (auto) 0.02 K/uL (0-0.50); Eosinophils % (auto) 0.3 %; Hemoglobin 10.9 g/dl (12.0-16.0); Immature Granulocytes # (auto) 0.03 K/uL (0.00-0.02); Immature Granulocytes % (auto) 0.4 %; Lymphocytes # (auto) 0.63 K/uL (1.2-3.4); Lymphocytes % (auto) 8.5 %; Mean Corpuscular Hemoglobin 31.2 pg (25.0-34.0); Mean Corpuscular Hgb Conc 35.2 g/dL (32.0-36.0); Mean Corpuscular Volume 88.8 fL (80.0-100.0); Mean Platelet Volume 9.3 fL (9.4-12.3); Monocytes # (auto) 0.53 K/uL (0.24-0.82); Monocytes % (auto) 7.1 %; Neutrophils % (auto) 83.6 %; Platelet Count 219 K/uL (130-400); RDW Coefficient of Variation 13.7 % (11.5-14.5); RDW Standard Deviation 44.1 fL (36.4-46.3); Red Blood Count 3.49 M/uL (3.93-5.22); White Blood Count 7.42 K/ul (4.8-10.8)
[2022-07-15 13:08] LABS: Albumin Globulin Ratio 1.3 (0.9-2); Albumin Level 4.3 gm/dl (3.4-5.0); BUN Creatinine Ratio 45.2 (10-20); Bilirubin,Total 0.7 mg/dl (0.2-1.0); Calcium 10.1 mg/dl (8.5-10.1); Creatinine Clr Calc Pharmacy 59.5 ml/min; Est GFR (African American) 93.3 ml/min; Est GFR (Non-African American) 80.5 ml/min; Globulin 3.3 gm/dl (2.5-4.0); Magnesium 1.9 mg/dl (1.7-2.4); Potassium 5.1 mmol/L (3.5-5.1); Total Protein 7.6 gm/dl (6.0-8.3)
[2022-07-15 13:13] LABS: Troponin I High Sensitivity 30.7 pg/ml (0-14)
--- NOTE | 2022-07-15 13:25 | XRay Report ---
XR chest 1V portable HISTORY: 86 years-old Female weakness acute weakness COMPARISON: 03/20/2022 TECHNIQUE: AP view of the chest FINDINGS: The cardiomediastinal and hilar silhouettes are within normal limits. Emphysema with chronic fibrotic change. Stable 11 mm right middle lobe pulmonary nodule. Thoracolumbar compression deformities are a gain noted. IMPRESSION: 1. Cardiomegaly without acute process. 2. Emphysema with chronic fibrotic changes. 3. Stable 11 mm right middle lobe pulmonary nodule. ACT 112: Negative or not required by law. The above report was generated using voice recognition software. It may contain grammatical, syntax o r spelling errors. Electronically signed by: Maurizio Alvarez M.D. 07/15/2022 1:24 PM
[2022-07-15 14:02] LABS: Appearance Urine Clear (Clear); Bacteria Urine Automated Negative (Negative); Bilirubin Urine Negative (Negative); Blood Urine Trace (Negative); Color Urine Yellow; Epithelial Cell Urine Auto 0-5 /lpf (0-5); Glucose Urine UA Negative (Negative); Ketones Urine Negative (Negative); Leukocyte Esterase Urine Negative (Negative); Nitrite Urine Negative (Negative); Protein Urine 2+ (Negative); RBC Urine Automated 0-4 /hpf (0-4); Specific Gravity Urine 1.012 (1.000-1.030); Urobilinogen Urine Negative (Negative); WBC Urine Automated 0 /hpf (0-5); pH Urine 5.5 (4.5-7.5)
--- NOTE | 2022-07-15 14:25 | CT Scan Report ---
CT head/brain wo con CLINICAL HISTORY: 86 years-old Female with fall. Acute head injury status post fall TECHNIQUE: Multiple axial CT images of the head were obtained without contrast. A dose lowering tech nique was utilized adhering to the principles of ALARA. COMPARISON: CT cervical spine of same day. FINDINGS: No acute intracranial hemorrhage, midline shift, intracranial mass, hydrocephalus, territorial ischem ia or abnormal extra-axial collection. Involutional changes with chronic microvascular ischemic disea se. Mildly motion degraded exam. The calvarium is intact. Trace left mastoid effusion. The right air cells are clear. Hypoplastic fro ntal sinuses. Unremarkable soft tissues. IMPRESSION: No acute intracranial abnormality or calvarial fracture. ACT 112: Negative or not required by law. The above report was generated using voice recognition software. It may contain grammatical, syntax o r spelling errors. Electronically signed by: Maurizio Alvarez M.D. 07/15/2022 2:24 PM
--- NOTE | 2022-07-15 14:30 | CT Scan Report ---
CT cervical spine wo con CT DOSE: 1920.64 mGy.cm CLINICAL HISTORY: 86 years-old Female with fall. Acute neck pain status post fall COMPARISON: Head CT of same day TECHNIQUE: Multiple axial CT images of the cervical spine were obtained without contrast. A dose low ering technique was utilized adhering to the principles of ALARA. FINDINGS: Demineralized appearance the bones. Multilevel moderate to advanced degenerative changes. S traightening of the normal cervical lordosis. 3 mm anterolisthesis C4 on C5, likely degenerative rela vladislav. Multilevel neural foraminal narrowing. The cervical soft tissues appear unremarkable. Emphysema with apical scarring. Trace left mastoid ef fusion. No pneumothorax. IMPRESSION: No acute cervical spine fracture or subluxation identified. ACT 112: Negative or not required by law. The above report was generated using voice recognition software. It may contain grammatical, syntax o r spelling errors. Electronically signed by: Maurizio Alvarez M.D. 07/15/2022 2:28 PM
--- NOTE | 2022-07-15 14:43 | CT Scan Report ---
CT lumbar spine wo con HISTORY: 86 years-old Female fall acute low back pain status post fall COMPARISON: Chest CT 11/26/2020, CT abdomen and pelvis 04/15/2019 TECHNIQUE: Multiple axial CT images of the lumbar spine were obtained without the use of IV contrast. A dose lowering technique was used consistent with the principals of MARCELLUS. FINDINGS: Extensive atherosclerosis of the abdominal aorta with infrarenal fusiform aneurysm dilation, 3.2 x 2. 9 cm. This previously measured 2.7 cm on the 2019 comparison. Extensive atherosclerotic plaque of the branch vessels. Cysts of the kidneys. Indeterminate density 1.1 cm lesion of the superior pole left kidney. Probable lipoma of the duodenum, 1.4 cm. No paravertebral edema. Evaluation central canal and neuroforamina is limited secondary to CT technique. Severe L4-L5 central canal stenosis secondary to ligamentum thickening, facet arthrosis and and L5 retropulsion. Moderate L3-L4 central canal stenosi s secondary to annular disc bulge, ligamentum thickening with severe facet arthrosis. There is a leas t mild multilevel neural foraminal narrowing. Transitional lumbosacral anatomy. For the purposes of this exam, 6 lumbar segments will be described. 20% superior endplate compression at L1 without retropulsion, unchanged. 50% superior endplate compr ession at L2 with 2 mm retropulsion is also chronic. 50% superior endplate compression at L5. There i s unchanged 5 mm anterolisthesis. 3 mm retropulsion. Finding is new from the 2019 study. Severe multi level facet arthrosis with moderate spondylitic spurring. Mostly mild multilevel intervertebral disc space narrowing with areas of vacuum disc phenomenon. Transitional lumbosacral anatomy. No sacral ins ufficiency fracture identified. SI joints and iliac bones appear intact. IMPRESSION: 1. Age-indeterminate 50% superior endplate compression deformity of L5 with mild retropulsion, new fr om 04/15/2019. 2. Severe central canal stenosis at L4-L5 has mildly progressed from the 04/15/2019 exam. 3. Chronic L1 and L2 compression deformities. 4. Transitional lumbosacral anatomy with 6 lumbar vertebral segments described. ACT 112: Negative or not required by law. The above report was generated using voice recognition software. It may contain grammatical, syntax o r spelling errors. Electronically signed by: Maurizio Alvarez M.D. 07/15/2022 2:41 PM
[2022-07-15 14:51] LABS: Partial Thromboplastin Ratio 1.1; Partial Thromboplastin Time 30.2 Seconds (21.0-31.0); Prothrombin Time 10.4 Seconds (9.0-12.0)
[2022-07-15] MEDS ORDERED: amLODIPine BESYLATE 5 MG TAB PO ONE ×2 (15:15→19:31)
[2022-07-15] MEDS ORDERED: ENALAPRIL MALEATE 5 MG TAB PO STA (15:15)
--- NOTE | 2022-07-15 15:16 | History & Physical Report ---
Date of Service July 15, 2022 Assessment & Plan (1) Compression fx, lumbar spine: Plan: - L5 compression fraction, age-indeterminate, though suspect is due to as it is in the patient's area of severe pain. - Lumbar CT: Age-indeterminate 50% superior endplate compression deformity of L5 with mild retropulsion, new from 04/15/2019. Severe central canal stenosis at L4- L5 has mildly progressed from the 04/15/2019 exam. Chronic L1 and L2 compression deformities. Transitional lumbosacral anatomy with 6 lumbar vertebral segments described - Though her strength is intact bilaterally, she is complaining of lower extremity weakness and is unable to ambulate due to pain. - Calcitonin spray daily, lidocaine patches, Tylenol and Toradol for pain control. - PT/OT to evaluate and treat while admitted. - Patient currently resides in the [facility], suspect she will need some kind of rehab or assisted living place temporarily after discharge. -CK mildly elevated at 600, will provide IVF, recheck renal function and CK in AM. (2) Elevated troponin I level: Plan: - HS trop 30.7, patient without any chest pain, palpitations, shortness of breath. - Recently had an echo done in April: Normal ventricular size and systolic function, EF 65 to 70%, no regional wall motion abnormalities, moderate LVH, moderate . - Will trend troponin. (3) Aortic stenosis: Plan: - Moderate, monitor volume status on receiving IVF for CK elevation. (4) HTN (hypertension): Plan: - Continue amlodipinebenazepril, metoprolol, spironolactone. - Patient presented hypertensive 213/76, did not take spironolactone at this morning, and a great deal of pain. Recheck before any HTn medication given, 176/68--we will give missed doses spironolactone continue to monitor. (5) COPD (chronic obstructive pulmonary disease): Plan: - Mixed obstructive and restrictive lung disease, no acute exacerbation today. Continue home inhalers, allergy medications. (6) Hyperlipidemia: Plan: - Continue atorvastatin. (7) Hx of anxiety disorder: Plan: - Xanax as needed, 0.5 mg twice daily. (8) Non-Hodgkin lymphoma: Plan: - History of non-Hodgkin lymphoma, has deferred additional work-up and management. Plan - admit to medicine w/ telemtry. - scds, lovenox for vte ppx. - full code. History of Present Illness Chief Complaint: Mechanical fall last evening Primary Care Provider: [facility] Payton Doan is an 86-year-old female with past medical history significant for mixed obstructive and restrictive lung disease, carotid artery stenosis, hypertension, hyperlipidemia, anxiety, and non-Hodgkin lymphoma who is presenting today after a fall. Resides in the [facility] portion of [facility]. She was trying to get off a chair to sleep up some cookie crumbs when she slid off the chair and landed on her back last evening and has been on the ground since then when she was found this way this morning. She states the fall happened because she got tripped up, denies any lightheadedness, dizziness, chest pain, palpitations before, during, or after the fall. Current complaints are of low back pain and bilateral leg weakness. She typically ambulates with a walker, however since the fall has been able to crawl on the ground but cannot stand on her 2 feet due to the weakness. She not having any acute numbness in her groin, focal weakness in either leg, urinary or bowel incontinence/retention. On presentation she is hypertensive 213/76, otherwise vital signs are within normal limits. Labs largely unremarkable, other than CK 682 and troponin 30.7. Lumbar CT shows age-indeterminate 50% superior endplate compression deformity at L5 with mild retropulsion, this is an area of patient stated back pain. There is also severe central canal stenosis at L4-L5 which is mildly progressed from 2019, chronic L1 and L3 compression deformities. CXR, head CT, and cervical spine CT all unremarkable for acute disease process. There is a stable 11 mm right middle lobe pulmonary nodule and emphysema, cardiomegaly noted on CXR. Allergies Allergy/AdvReac Type Severity Reaction Status Date / Time No Known Allergies Allergy Unverified 07/15/22 16:16 Home Medications Medication Instructions Recorded Confirmed Type atorvastatin 40 mg tablet (Lipitor) 40 mg PO DAILY 04/22/18 07/15/22 History cholecalciferol (vitamin D3) 25 3,000 units PO DAILY 04/22/18 07/15/22 History mcg (1,000 unit) capsule nebivolol 10 mg tablet (Bystolic) 10 mg PO DAILY 04/22/18 07/15/22 History tramadol 50 mg tablet 50 mg PO QID 04/22/18 07/15/22 History acetaminophen 500 mg tablet 1,000 mg PO QID 07/15/22 07/15/22 History (Tylenol Extra Strength) albuterol sulfate 90 mcg/actuation 2 puff inhalation Q6 PRN 07/15/22 07/15/22 History aerosol inhaler wheezing,SOB,chest tightness alprazolam 0.5 mg tablet 0.5 mg PO BID 07/15/22 07/15/22 History amlodipine 5 mg-benazepril 40 mg 1 cap PO DAILY 07/15/22 07/15/22 History capsule gabapentin 100 mg capsule 100 mg PO DAILY PRN Itching 07/15/22 07/15/22 History gabapentin 100 mg capsule 100 mg PO HS 07/15/22 07/15/22 History spironolactone 25 mg tablet 12.5 mg PO DAILY 07/15/22 07/15/22 History Past Med/Surg History Medical History (Updated 07/15/22 @ 16:20 by Emily Bae PA-C) Basal cell carcinoma (BCC) Carotid artery stenosis COPD (chronic obstructive pulmonary disease) Degenerative arthritis of knee, bilateral History of elevated lipids History of macular degeneration HTN (hypertension) Hx of anxiety disorder Lymphoma Malignant neoplasm bone Non-Hodgkin lymphoma Osteoarthritis Psoriasis Surgical History History of hysterectomy Social History Smoking Status: Never smoker Hx Alcohol Use: No Hx Substance Use: No Preferred Language: Syriac Communication Ability: Effective Visual Impairment: Severely Limited Hearing Ability: Normal Shoe Folder Required: No Beliefs That Will Affect Care: None marital status: Current Living Situation: Alone and Personal Care Facility Current Living Situation Comment: Lives at [facility], [facility] Other Information That Helps Us Care for You: No Feels Safe at Home: Yes Safety Concerns: Feels Safe At This Time Review of Systems Review of Systems: Constitutional: No fever/chills, weakness, fatigue, myalgias, anorexia, night sweats Eyes: No diplopia, no worsening or blurred vision ENT: normal hearing, no trouble swallowing Respiratory: No cough, sputum, dyspnea at rest or on exertion Cardiovascular: No chest pain, tightness or palpitations Abdomen: No pain, nausea, vomiting, diarrhea or constipation : Denies dysuria, hematuria, increased urgency/frequency, urinary retention Musculoskeletal: low back pain with b/l leg weakness, no new numbness/tingling, focal weakness, or radiation of pain into legs; No joint pain, calf pain, swelling Neurologic: No weakness, numbness/tingling, or balance problems Psychiatric: No anxiety or depression Skin: No rash or itch Physical Exam Physical Exam: General: awake, alert, no apparent distress Head: Normocephalic, atraumatic ENT: PERRL, EOMI, no pharyngeal exudate, mucous membranes moist Chest: Clear to auscultation, on room air, no adventitious breath sounds Cardiac: 2/6 systolic murmur appreciated; Regular rate and rhythm, no JVD, normal peripheral pulses, good capillary refill Abdominal: NABS x 4 quadrants, soft, nontender to palpation, no rebound, guarding or tenderness Extremities: TTP along lumbar spine, paraspinal muscles; otherwise normal inspection, no peripheral edema or erythema, calfs nontender to palpation Psych: Normal mood and affect Neuro: AAO x 3, strength intact bilaterally and rated 5/5, no motor deficits, speech is clear, no peripheral sensory deficits Skin: no rash or erythema Results & Data Results & Data ([facility]) Vital Signs (Past 12 Hours) Vital Signs Pulse Resp BP Pulse Ox O2 Del Method 07/15/22 14:31 99 H 14 213/76 H 96 07/15/22 12:51 96 Room Air Laboratory Results Abnormal lab results 07/15/22 07/15/22 07/15/22 Range/Units Unknown Unknown Unknown RBC 3.49 L (3.93-5.22) M/uL Hgb 10.9 L (12.0-16.0) g/dl Hct 31.0 L (34.1-44.9) % MPV 9.3 L (9.4-12.3) fL Lymph # (Auto) 0.63 L (1.2-3.4) K/uL Immature Gran # (Auto) 0.03 H (0.00-0.02) K/uL Sodium 132 L (136-145) mmol/L BUN 28 H (6-23) mg/dl BUN/Creatinine Ratio 45.2 H (10-20) Glucose 144 H (70-99(Fasting)) mg/dl AST 66 H (13-39) U/L Total Creatine Kinase 682 H (26-192) U/L Troponin I High Sens 30.7 H (0-14) pg/ml Urine Protein 2+ H (Negative) Urine Blood Trace H (Negative) Diagnostic Findings Cervical Spine CT 07/15/22 12:11 CT cervical spine wo con CT DOSE: 1920.64 mGy.cm CLINICAL HISTORY: 86 years-old Female with fall. Acute neck pain status post fall COMPARISON: Head CT of same day TECHNIQUE: Multiple axial CT images of the cervical spine were obtained without contrast. A dose lowering technique was utilized adhering to the principles of ALARA. FINDINGS: Demineralized appearance the bones. Multilevel moderate to advanced degenerative changes. Straightening of the normal cervical lordosis. 3 mm anterolisthesis C4 on C5, likely degenerative related. Multilevel neural foraminal narrowing. The cervical soft tissues appear unremarkable. Emphysema with apical scarring. Trace left mastoid effusion. No pneumothorax. IMPRESSION: No acute cervical spine fracture or subluxation identified. ACT 112: Negative or not required by law. The above report was generated using voice recognition software. It may contain grammatical, syntax or spelling errors. Electronically signed by: Maurizio Alvarez M.D. 07/15/2022 2:28 PM Chest X-Ray 07/15/22 12:11 XR chest 1V portable HISTORY: 86 years-old Female weakness acute weakness COMPARISON: 03/20/2022 TECHNIQUE: AP view of the chest FINDINGS: The cardiomediastinal and hilar silhouettes are within normal limits. Emphysema with chronic fibrotic change. Stable 11 mm right middle lobe pulmonary nodule. Thoracolumbar compression deformities are again noted. IMPRESSION: 1. Cardiomegaly without acute process. 2. Emphysema with chronic fibrotic changes. 3. Stable 11 mm right middle lobe pulmonary nodule. ACT 112: Negative or not required by law. The above report was generated using voice recognition software. It may contain grammatical, syntax or spelling errors. Electronically signed by: Maurizio Alvarez M.D. 07/15/2022 1:[address] 07/15/22 12:11 CT head/brain wo con CLINICAL HISTORY: 86 years-old Female with fall. Acute head injury status post fall TECHNIQUE: Multiple axial CT images of the head were obtained without contrast. A dose lowering technique was utilized adhering to the principles of ALARA. COMPARISON: CT cervical spine of same day. FINDINGS: No acute intracranial hemorrhage, midline shift, intracranial mass, hydrocephalus, territorial ischemia or abnormal extra-axial collection. Involutional changes with chronic microvascular ischemic disease. Mildly motion degraded exam. The calvarium is intact. Trace left mastoid effusion. The right air cells are clear. Hypoplastic frontal sinuses. Unremarkable soft tissues. IMPRESSION: No acute intracranial abnormality or calvarial fracture. ACT 112: Negative or not required by law. The above report was generated using voice recognition software. It may contain grammatical, syntax or spelling errors. Electronically signed by: Maurizio Alvarez M.D. 07/15/2022 2:[address] 07/15/22 12:11 CT lumbar spine wo con HISTORY: 86 years-old Female fall acute low back pain status post fall COMPARISON: Chest CT 11/26/2020, CT abdomen and pelvis 04/15/2019 TECHNIQUE: Multiple axial CT images of the lumbar spine were obtained without the use of IV contrast. A dose lowering technique was used consistent with the principals of ALARA. FINDINGS: Extensive atherosclerosis of the abdominal aorta with infrarenal fusiform aneurysm dilation, 3.2 x 2.9 cm. This previously measured 2.7 cm on the 2019 comparison. Extensive atherosclerotic plaque of the branch vessels. Cysts of the kidneys. Indeterminate density 1.1 cm lesion of the superior pole left kidney. Probable lipoma of the duodenum, 1.4 cm. No paravertebral edema. Evaluation central canal and neuroforamina is limited secondary to CT technique. Severe L4- L5 central canal stenosis secondary to ligamentum thickening, facet arthrosis and and L5 retropulsion. Moderate L3-L4 central canal stenosis secondary to annular disc bulge, ligamentum thickening with severe facet arthrosis. There is a least mild multilevel neural foraminal narrowing. Transitional lumbosacral anatomy. For the purposes of this exam, 6 lumbar segments will be described. 20% superior endplate compression at L1 without retropulsion, unchanged. 50% superior endplate compression at L2 with 2 mm retropulsion is also chronic. 50% superior endplate compression at L5. There is unchanged 5 mm anterolisthesis. 3 mm retropulsion. Finding is new from the 2019 study. Severe multilevel facet arthrosis with moderate spondylitic spurring. Mostly mild multilevel intervertebral disc space narrowing with areas of vacuum disc phenomenon. Transitional lumbosacral anatomy. No sacral insufficiency fracture identified. SI joints and iliac bones appear intact. IMPRESSION: 1. Age-indeterminate 50% superior endplate compression deformity of L5 with mild retropulsion, new from 04/15/2019. 2. Severe central canal stenosis at L4-L5 has mildly progressed from the 04/15/2019 exam. 3. Chronic L1 and L2 compression deformities. 4. Transitional lumbosacral anatomy with 6 lumbar vertebral segments described. ACT 112: Negative or not required by law. The above report was generated using voice recognition software. It may contain grammatical, syntax or spelling errors. Electronically signed by: Maurizio Alvarez M.D. 07/15/2022 2:41 PM ECG Additional Comments: Sinus tachycardia with 1st degree A-V block Otherwise normal ECG When compared with ECG of 03-FEB-1998 11:51, [place] interval has increased. Code Status & VTE Plan Code Status Full Code. Supervising Physician Co-Signing Physician Notes Patient seen and examined, chart reviewed, case discussed with Emily Bae PA-C and I agree with the assessment and plan as above except as otherwise noted. Labs and images reviewed Payton Doan is an 86-year-old female with past medical history of COPD, mixed restrictive lung disease, EMILEE, hypertension, hyperlipidemia who presented after fall at [facility]. Slid from chair and landed on her back, did not have any lightheadedness/dizziness or syncopal symptoms. Imaging shows a endplate compression deformity and severe canal stenosis progressed from prior. Patient was reviewed with radiology, area initially reported as) at L5 was also seen in 20 personally. Appears chronic, not acute. Patient is seen at the bedside after transfer to room, she reports that she continues to have pain in her low back. She continues to have pain in her legs bilaterally, but notes that this is not different from pain she had prior to admission. She reports that she has chronically had weakness and intermittent pain in her back before her fall, and that her legs feel similar. Discussed the numbness that she is having in her back in conjunction with weakness and concern for spinal stenosis. Patient reports that "I am not eager to do something at near 90" given chronic appearance of other fractures would like to see how she does with pain control at this time. Reasonable, if suspicion for symptomatic spinal stenosis persists can follow-up with lumbar MRI. Otherwise agree with management above. Patient with no questions or concerns at visit PG Care Time/CCT Total # of Minutes Spent Total Time Spent with Patient: Total time spent is greater than 50% in coordination of care (as documented) at patient's floor/unit and/or counseling patient: Coding Level of Care Code 19500 INT INP/OBS CARE MIN Diagnoses Compression fx, lumbar spine S32.000A Encounter type: initial encounter Lumbar vertebra fracture level: unspecified lumbar vertebra Elevated troponin I level R77.8 Aortic stenosis I35.0 HTN (hypertension) I10 COPD (chronic obstructive pulmonary disease) J44.9 Hyperlipidemia E78.5 Hx of anxiety disorder Z86.59 Non-Hodgkin lymphoma C85.90 (1) Compression fx, lumbar spine Encounter type: initial encounter Lumbar vertebra fracture level: unspecified lumbar vertebra Qualified Code(s): S32.000A - Wedge compression fracture of unspecified lumbar vertebra, initial encounter for closed fracture
[2022-07-15] MEDS ORDERED: LACTATED RINGER'S 1,000 ML IV SCH (15:30)
[2022-07-15] MEDS ORDERED: SPIRONOLACTONE 12.5 MG TAB PO ONE (15:49)
[2022-07-15] MEDS ORDERED: GABAPENTIN 100 MG CAP PO PRN (17:22)
[2022-07-15] MEDS ORDERED: ALUMINUM/MAGNESIUM SUSP 30 ML UDC PO PRN (17:22)
[2022-07-15] MEDS ORDERED: ALBUTEROL HFA 8 GM INHALER INH PRN (17:22)
[2022-07-15] MEDS ORDERED: POLYETHYLENE (MIRALAX) 17 GM PACK PO PRN (17:22)
[2022-07-15] MEDS ORDERED: CETIRIZINE HCL 10 MG TABLET PO PRN (17:22)
[2022-07-15] MEDS ORDERED: ONDANSETRON INJ 2 MG/ML 2 ML VIAL IV PRN (17:22)
[2022-07-15] MEDS ORDERED: ACETAMINOPHEN 325 MG TAB PO PRN (17:22)
[2022-07-15] MEDS: traMADol HCL 50 MG TABLET PO SCH ×2 (17:51→20:12)
[2022-07-15] MEDS: LIDOCAINE 5% 1 PATCH TD SCH (18:35)
[2022-07-15] MEDS ORDERED: LABETALOL HCL IV 5 MG/ML 20ML IV STA (18:47)
[2022-07-15] MEDS: ALPRAZolam 0.5 MG TABLET PO SCH (20:12)
[2022-07-15] MEDS: GABAPENTIN 100 MG CAP PO SCH (22:36)
[2022-07-15] MEDS: KETOROLAC TROMETHAMINE 15 MG/ML VIAL IV PRN (22:38)
[2022-07-16] MEDS ORDERED: METOPROLOL TARTRATE 1 MG/ML VIAL IV STA (03:25)
[2022-07-16] MEDS ORDERED: hydrALAZINE HCL 20 MG/ML VIAL IV ONE (03:32)
[2022-07-16] MEDS: KETOROLAC TROMETHAMINE 15 MG/ML VIAL IV PRN (04:10)
--- NOTE | 2022-07-16 08:51 | Hospitalist Progress Note ---
Date of Service July 16, 2022 Assessment & Plan (1) Compression fx, lumbar spine: Plan: - Presented with acute worsening of chronic lumbar back pain. - Lumbar CT: Age-indeterminate 50% superior endplate compression deformity of L5 with mild retropulsion, new from 04/15/2019. Severe central canal stenosis at L4- L5 has mildly progressed from 04/15/2019 exam. Chronic L1 / L2 compression deformities. - CK mildly elevated at 600 -> 500, no evidence of renal dysfunction, no prolonged downtime. - Calcitonin spray daily, lidocaine patches, Tylenol and Toradol for pain control. - Ortho Spine consulted; do not anticipate patient is surgical candidate given age and comorbidities however given subjective weakness will have her evaluated. MRI L spine ordered. Case discussed with Dr. Mckeon. - PT/OT to evaluate and treat while admitted. Patient currently resides [facility], suspect she will need some kind of rehab or assisted living temporarily after discharge. (2) Elevated troponin I level: Plan: - Admit trop 30.7, patient without any chest pain, palpitations, shortness of breath. Trend with similar values, question if patient's troponin is chronically elevated to 30-40. - Recently had an Echo done in April: Normal ventricular size and systolic function, EF 65 to 70%, no regional wall motion abnormalities, moderate LVH, moderate . (3) Aortic stenosis: Plan: - Moderate, chronic. (4) HTN (hypertension): Plan: - Continue amlodipine, metoprolol, spironolactone. - BP 140-170s systolic today. (5) COPD (chronic obstructive pulmonary disease): Plan: - Mixed obstructive and restrictive lung disease, no acute exacerbation evident. Continue home inhalers, allergy medications. (6) Hyperlipidemia: Plan: - Continue atorvastatin. (7) Hx of anxiety disorder: Plan: - Xanax as needed, 0.5 mg twice daily. Chronic medication. (8) Non-Hodgkin lymphoma: Plan: - History of non-Hodgkin lymphoma, has deferred additional work-up and management. (9) Anemia: Plan: Chronic, with baseline Hgb ~11. Hgb 10.9 today. Folate and B12 normal in March 2022. No evidence of blood loss. (10) Hyponatremia: Plan: History of, with Na chronically around 132. At baseline this admission. Plan Med/Tele Regular diet Lovenox daily FULL CODE Admission and Anticipated Discharge Date Admission Date: July 15, 2022 Subjective Hypertensive overnight, had prn hydralazine x1 ordered. Pain somewhat better today, can "wiggle in bed a little better". Other than pain in back/LEs, no other complaints. Review of Systems Review of Systems: All systems reviewed & are unremarkable except as noted in Subjective Physical Exam Constitutional: WD/WN, vitals as above Respiratory: normal respiratory effort, lungs clear to auscultation Cardiovascular: RRR, no murmur, no edema Gastrointestinal (Abdomen): normal bowel sounds, soft, nontender, no hepatosplenomegaly Skin: no rashes, warm and dry Neurologic: bilateral LE sensation intact, 5/5 strength with plantarflexion and dorsiflexion Psychiatric: A+Ox3, euthymic affect Results & Data Results & Data ([facility]) Vital Signs (Past 12 Hours) Vital Signs Temp Pulse Pulse Resp BP BP Pulse Ox 07/16/22 08:12 64 07/16/22 07:45 36.8 C 89 18 176/63 H 93 07/16/22 04:23 82 16 166/70 H 96 07/16/22 03:24 37.0 C 78 16 189/65 H 95 07/15/22 23:16 37.3 C 82 16 187/68 H 92 O2 Del Method O2 Flow Rate 07/16/22 08:12 07/16/22 07:45 Room Air 0 07/16/22 04:23 Room Air 07/16/22 03:24 Room Air 07/15/22 23:16 Room Air PG Care Time/CCT Total # of Minutes Spent Total Time Spent with Patient: Total time spent is greater than 50% in coordination of care (as documented) at patient's floor/unit and/or counseling patient: Coding Level of Care Code 47654 SUB INP/OBS CARE 3/50MIN Diagnoses Compression fx, lumbar spine S32.000A Encounter type: initial encounter Lumbar vertebra fracture level: unspecified lumbar vertebra Elevated troponin I level R77.8 Aortic stenosis I35.0 HTN (hypertension) I10 COPD (chronic obstructive pulmonary disease) J44.9 Hyperlipidemia E78.5 Hx of anxiety disorder Z86.59 Non-Hodgkin lymphoma C85.90 Anemia D64.9 Hyponatremia E87.1 (1) Compression fx, lumbar spine Encounter type: initial encounter Lumbar vertebra fracture level: unspecified lumbar vertebra Qualified Code(s): S32.000A - Wedge compression fracture of unspecified lumbar vertebra, initial encounter for closed fracture
[2022-07-16] MEDS: METOPROLOL TARTRATE 50 MG TAB PO SCH ×2 (09:43→22:07)
[2022-07-16] MEDS: SPIRONOLACTONE 12.5 MG TAB PO SCH (09:43)
[2022-07-16] MEDS: traMADol HCL 50 MG TABLET PO SCH ×4 (09:45→22:05)
[2022-07-16] MEDS: ALPRAZolam 0.5 MG TABLET PO SCH ×2 (09:46→22:05)
[2022-07-16] MEDS: amLODIPine BESYLATE 5 MG TAB PO SCH (10:04)
[2022-07-16] MEDS: ZINC SULFATE 220 MG CAPSULE PO SCH (10:06)
[2022-07-16] MEDS: ATORVASTATIN 40 MG TAB PO SCH (10:06)
[2022-07-16] MEDS: CHOLECALCIFEROL 1,000 UNITS 25 MCG TAB PO SCH (10:06)
[2022-07-16] MEDS: CEROVITE ADV FORMULA TAB PO SCH (10:07)
[2022-07-16] MEDS: DULoxetine HCL 30 MG CAP PO SCH (10:07)
[2022-07-16] MEDS: CALCITONIN SALMON NA 200 IU/AC 3.7 ML BTL SCH (10:07)
[2022-07-16] MEDS: ENALAPRIL MALEATE 10 MG TAB PO SCH (10:07)
[2022-07-16] MEDS: LIDOCAINE 5% 1 PATCH TD SCH (10:08)
--- NOTE | 2022-07-16 11:57 | Orthopedic Consultation ---
Date of Consultation July 16, 2022 Assessment & Plan (1) Neurogenic claudication due to lumbar spinal stenosis: CAT scan obtained does demonstrate evidence of possible compression fracture with underlying spinal stenosis. I like to obtain an MRI lumbar spine for further neurologic anatomic detail. Make further conditions at that time. History of Present Illness Reason for Consultation: Back pain with leg weakness Attending Physician: Ai Christian, DO History of Present Illness This is an 86-year-old female who presents after sliding out of her chair at her home. She is does live independently. She uses a walker on a regular basis. She states that after her fall she is unable to weight-bear and ambulate secondary to weakness and pain. This morning she is comfortable lying supine. She has no clear radicular complaints. She does describe some areas of numbness in the left lower extremity. This has been established. She does note occasional bilateral leg pain. Allergies Allergy/AdvReac Type Severity Reaction Status Date / Time No Known Allergies Allergy Unverified 07/15/22 16:16 Home Medications Medication Instructions Recorded Confirmed Type atorvastatin 40 mg tablet (Lipitor) 40 mg PO DAILY 04/22/18 07/15/22 History cholecalciferol (vitamin D3) 25 3,000 units PO DAILY 04/22/18 07/15/22 History mcg (1,000 unit) capsule nebivolol 10 mg tablet (Bystolic) 10 mg PO DAILY 04/22/18 07/15/22 History tramadol 50 mg tablet 50 mg PO QID 04/22/18 07/15/22 History acetaminophen 500 mg tablet 1,000 mg PO QID 07/15/22 07/15/22 History (Tylenol Extra Strength) albuterol sulfate 90 mcg/actuation 2 puff inhalation Q6 PRN 07/15/22 07/15/22 History aerosol inhaler wheezing,SOB,chest tightness alprazolam 0.5 mg tablet 0.5 mg PO BID 07/15/22 07/15/22 History amlodipine 5 mg-benazepril 40 mg 1 cap PO DAILY 07/15/22 07/15/22 History capsule gabapentin 100 mg capsule 100 mg PO DAILY PRN Itching 07/15/22 07/15/22 History gabapentin 100 mg capsule 100 mg PO HS 07/15/22 07/15/22 History spironolactone 25 mg tablet 12.5 mg PO DAILY 07/15/22 07/15/22 History Patient History Medical History (Updated 07/16/22 @ 11:57 by Bo Mckeon, DO) Basal cell carcinoma (BCC) Carotid artery stenosis COPD (chronic obstructive pulmonary disease) Degenerative arthritis of knee, bilateral History of elevated lipids History of macular degeneration HTN (hypertension) Hx of anxiety disorder Lymphoma Malignant neoplasm bone Non-Hodgkin lymphoma Osteoarthritis Psoriasis Surgical History History of hysterectomy Social History Smoking Status: Never smoker Hx Alcohol Use: No Hx Substance Use: No Preferred Language: Italian Communication Ability: Effective Visual Impairment: Severely Limited Hearing Ability: Normal Rod And Tube Straightener Required: No Beliefs That Will Affect Care: None marital status: Current Living Situation: Alone and Personal Care Facility Current Living Situation Comment: Lives at [facility] Other Information That Helps Us Care for You: No Feels Safe at Home: Yes Safety Concerns: Feels Safe At This Time Physical Exam Physical Exam: On exam she is alert and oriented. She has good strength testing with plantar flexion dorsiflexion. She has reasonable hip flexion bilaterally. Sensory symmetric and intact. Results & Data ([facility]) Vital Signs (Past 12 Hours) Vital Signs Temp Pulse Pulse Resp BP BP Pulse Ox 07/16/22 11:46 152/70 H 07/16/22 11:40 16 97 07/16/22 11:38 36.8 C 97 H 130/82 97 07/16/22 08:12 64 07/16/22 07:45 36.8 C 89 18 176/63 H 93 07/16/22 04:23 82 16 166/70 H 96 07/16/22 03:24 37.0 C 78 16 189/65 H 95 O2 Del Method O2 Flow Rate 07/16/22 11:46 07/16/22 11:40 Room Air 07/16/22 11:38 Room Air 07/16/22 08:12 07/16/22 07:45 Room Air 0 07/16/22 04:23 Room Air 07/16/22 03:24 Room Air
--- NOTE | 2022-07-16 15:00 | Magnetic Resonance Report ---
LUMBAR SPINE MRI HISTORY: Back pain with leg weakness TECHNIQUE: Multiplanar multisequence MRI of the lumbar spine was performed without the use of contras t. COMPARISON: Lumbar spine CT 07/15/2022. Lumbar spine MRI 08/16/2017 and thoracic spine MRI 06/27/2020. FINDINGS: For the purpose of the report there are 6 lumbar type vertebral bodies with the L6 S1 disc space located on axial image 33 of 35. There are old mild superior endplate compression fractures at T11 and L1. Moderate super endplate com pression fractures at L2 and L5 are also demonstrated to be old. No acute fractures identified within the lumbar spine. Grade 1 anterolisthesis of L4 and L5, unchanged. 3 mm of retropulsion of the poste rior superior corner of L5 is also unchanged. The conus terminates at the L1-L2 disc space level. The visualized sacrum is intact. Mild lumbosacral subcutaneous edema is noted. Partially visualized himanshu l cysts. There is a partially visualized distended bladder. Paravertebral soft tissues are unremarkab le. Moderate facet degenerative changes seen throughout the lumbar spine. There is an ectatic abdomin al aorta measuring up to 2.6 cm in diameter. L1-L2: Small broad-based posterior disc bulge without significant central canal narrowing. There is m ild bilateral neural foraminal narrowing. L2-L3: Small broad-based posterior disc bulge without significant central canal narrowing. There is m ild bilateral neural foraminal narrowing L3-L4: Small broad-based posterior disc bulge with ligamentum and facet hypertrophy resulting in mode rate central canal narrowing. The AP diameter of the central canal is 7.5 mm. There is mild bilateral neural foraminal narrowing. L4-L5: Broad-based posterior disc bulge with ligamentum and facet hypertrophy resulting in moderate c entral canal narrowing with the AP diameter measuring 7.2 mm. No significant neural foraminal narrowi ng. L5 L6: No significant central canal or neural foraminal narrowing. L6 S1: No significant central canal or neural foraminal narrowing. IMPRESSION: 1. Multiple old compression deformity is within the lower thoracic and lumbar spine. 2. No acute fractures within the lumbar spine. 3. Degenerative changes as described above. 4. Distended bladder. ACT 112: Negative or not required by law. Electronically signed by: Tremaine Cedeno M.D. 07/16/2022 2:57 PM
[2022-07-16] MEDS: ACETAMINOPHEN 325 MG TAB PO SCH ×2 (16:15→22:05)
--- NOTE | 2022-07-16 18:56 | XCELERA ---
[id number] \\[id number]
[2022-07-16] MEDS: ENOXAPARIN INJ 40 MG/0.4 ML SYR SQ SCH ×3 (19:45→20:20)
[2022-07-16] MEDS: GABAPENTIN 100 MG CAP PO SCH (22:07)
--- NOTE | 2022-07-16 22:11 | Electrocardiogram Report ---
Test Reason : Blood Pressure : / mmHG Vent. Rate : 101 BPM Atrial Rate : 101 BPM P-R Int : 222 ms QRS Dur : 078 ms QT Int : 328 ms P-R-T Axes : 068 036 046 degrees QTc Int : 425 ms Poor data quality, interpretation may be adversely affected Sinus tachycardia with 1st degree A-V block Otherwise normal ECG When compared with ECG of 03-FEB-1998 11:51, [place] interval has increased Confirmed by Franki Solorio ([id number]) on 07/16/2022 10:10:56 PM Referred By: Bambi Salgado Confirmed By:Franki Solorio
[2022-07-17] MEDS: ACETAMINOPHEN 325 MG TAB PO SCH ×3 (06:19→22:18)
[2022-07-17] MEDS: SPIRONOLACTONE 12.5 MG TAB PO SCH (08:56)
[2022-07-17] MEDS: CEROVITE ADV FORMULA TAB PO SCH (08:56)
[2022-07-17] MEDS: ENALAPRIL MALEATE 10 MG TAB PO SCH (08:56)
[2022-07-17] MEDS: METOPROLOL TARTRATE 50 MG TAB PO SCH ×2 (08:56→20:24)
[2022-07-17] MEDS: ZINC SULFATE 220 MG CAPSULE PO SCH (08:56)
[2022-07-17] MEDS: amLODIPine BESYLATE 5 MG TAB PO SCH (08:57)
[2022-07-17] MEDS: DULoxetine HCL 30 MG CAP PO SCH (08:57)
[2022-07-17] MEDS: CHOLECALCIFEROL 1,000 UNITS 25 MCG TAB PO SCH (08:57)
[2022-07-17] MEDS: LIDOCAINE 5% 1 PATCH TD SCH (08:57)
[2022-07-17] MEDS: CALCITONIN SALMON NA 200 IU/AC 3.7 ML BTL SCH (08:57)
[2022-07-17] MEDS: ATORVASTATIN 40 MG TAB PO SCH (08:58)
[2022-07-17] MEDS: traMADol HCL 50 MG TABLET PO SCH ×4 (08:59→20:23)
[2022-07-17] MEDS: ALPRAZolam 0.5 MG TABLET PO SCH ×2 (08:59→20:23)
[2022-07-17 09:03] LABS: BUN Creatinine Ratio 46.7 (10-20); Calcium 8.9 mg/dl (8.5-10.1); Creatinine Clr Calc Pharmacy 49.6 ml/min; Est GFR (African American) 82.5 ml/min; Est GFR (Non-African American) 71.2 ml/min
[2022-07-17 09:04] LABS: Hematocrit (blood only) 30.5 % (34.1-44.9); Hemoglobin 10.2 g/dl (12.0-16.0); Mean Corpuscular Hemoglobin 31.5 pg (25.0-34.0); Mean Corpuscular Hgb Conc 33.4 g/dL (32.0-36.0); Mean Corpuscular Volume 94.1 fL (80.0-100.0); Mean Platelet Volume 9.7 fL (9.4-12.3); Platelet Count 185 K/uL (130-400); RDW Coefficient of Variation 14.3 % (11.5-14.5); RDW Standard Deviation 49.1 fL (36.4-46.3); Red Blood Count 3.24 M/uL (3.93-5.22); White Blood Count 7.63 K/ul (4.8-10.8)
--- NOTE | 2022-07-17 09:52 | Orthopedic Progress Note ---
Date of Service July 17, 2022 Assessment & Plan (1) Neurogenic claudication due to lumbar spinal stenosis: Plan: MRI available does demonstrate evidence of multilevel spinal stenosis to varying degrees. Is not severe. There is no evidence of an acute fracture. I am recommending a trial of physical therapy. If she continues to have discomfort we may need to consider consultation with interventional pain management. Admission and Anticipated Discharge Date Admission Date: July 15, 2022 Subjective Patient's pain is controlled. She denies any leg pain. Physical Exam Physical Exam: On exam she is currently in bed she is alert and oriented. She is good strength testing lower extremities. Results & Data ([facility]) Vital Signs (Past 12 Hours) Vital Signs Temp Pulse Pulse Pulse Resp BP Pulse Ox 07/17/22 08:11 36.5 C 58 L 16 170/74 H 92 07/17/22 07:43 66 07/17/22 04:00 80 07/17/22 03:40 37.1 C 71 18 158/66 H 94 07/16/22 23:46 36.7 C 67 18 149/62 H 92 O2 Del Method 07/17/22 08:11 Room Air 07/17/22 07:43 07/17/22 04:00 07/17/22 03:40 Room Air 07/16/22 23:46 Room Air
--- NOTE | 2022-07-17 15:47 | Hospitalist Progress Note ---
Date of Service July 17, 2022 Assessment & Plan (1) Compression fx, lumbar spine: Plan: Lumbar MRI scan is negative for acute fracture. She does have chronic findings however. Presented with acute worsening of chronic lumbar back pain. Lumbar CT: Age-indeterminate 50% superior endplate compression deformity of L5 with mild retropulsion, new from 04/15/2019. Severe central canal stenosis at L4-L5 has mildly progressed from 04/15/2019 exam. Chronic L1 / L2 compression deformities. Currently on Calcitonin spray daily, lidocaine patches, Tylenol and Toradol for pain control. Ortho Spine consult appreciated. No indication for surgery at this time. (2) Elevated troponin I level: Plan: Mild. No evidence of acute coronary syndrome. Cardiac echo negative for regional wall motion abnormalities. (3) Aortic stenosis: Plan: Moderate to severe on cardiac echo. No intervention necessary at this time. (4) HTN (hypertension): Plan: Continue amlodipine, metoprolol, spironolactone. (5) COPD (chronic obstructive pulmonary disease): Plan: Mixed obstructive and restrictive lung disease, no acute exacerbation evident. Stable on current medication. (6) Hyperlipidemia: Plan: Continue atorvastatin. Low-cholesterol diet (7) Hx of anxiety disorder: Plan: Xanax as needed (8) Non-Hodgkin lymphoma: Plan: History of non-Hodgkin lymphoma. Has deferred additional work-up and management. (9) Anemia: Plan: Chronic, with baseline Hgb ~11. No sign of acute blood loss. (10) Hyponatremia: Plan: Mild. No intervention needed. Serial labs Plan Anticipate probable discharge to SNF for rehab when arrangements are finalized. She is medically stable for discharge. Admission and Anticipated Discharge Date Admission Date: July 15, 2022 Subjective Alert and pleasant. OT and PT evaluations completed. SNF or rehab recommended at discharge. Lumbar MRI scan reveals no evidence of acute fracture. Cardiac echo reveals normal ejection fraction with evidence of left ventricular hypertrophy and moderately severe aortic valve stenosis. CK is minimally elevated and trending downward and needs no intervention at this time. Review of Systems Review of Systems: Constitutional-no fever or chills ENT-no blurred vision, no double vision, no epistaxis, no sore throat Respiratory-no cough, no wheezing, no shortness of breath Cardiac-no palpitations, no chest pain, no syncope GI-no nausea, vomiting, diarrhea, melena, hematochezia -no urinary retention, no urinary incontinence, no dysuria, no hematuria Musculoskeletal-no joint pain, no muscle tenderness. Bilateral lower extremity weakness Skin-no bruising, no rashes, no pruritus Neuro-bilateral lower extremity weakness Psych-no depression, no anxiety Physical Exam Physical Exam: General-alert and oriented x3, no fevers, no chills HEENT-head atraumatic and normocephalic, pupils equal and reactive to light, extraocular muscles intact Neck-no lymphadenopathy or thyromegaly, trachea midline Chest-clear to auscultation percussion. No rales wheezing or rhonchi Cardiac-regular rate and rhythm, normal S1 and S2 Abdomen-normal bowel sounds, nontender, no hepatosplenomegaly Extremities-no cyanosis, clubbing, or edema Neuro-bilateral lower extremity weakness. Psych-normal affect, normal mood Results & Data Results & Data ([facility]) Vital Signs (Past 12 Hours) Vital Signs Temp Pulse Pulse Resp BP Pulse Ox O2 Del Method 07/17/22 15:30 36.8 C 60 16 155/68 H 92 Room Air 07/17/22 11:45 36.8 C 62 16 151/69 H 92 Room Air 07/17/22 08:11 36.5 C 58 L 16 170/74 H 92 Room Air 07/17/22 07:43 66 07/17/22 04:00 80 Laboratory Results 07/17/22 07:40 07/17/22 07:40 PG Care Time/CCT Total # of Minutes Spent Total Time Spent with Patient: Total time spent is greater than 50% in coordination of care (as documented) at patient's floor/unit and/or counseling patient: Coding Level of Care Code 94574 SUB INP/OBS CARE 3/50MIN Diagnoses Compression fx, lumbar spine S32.000A Encounter type: initial encounter Lumbar vertebra fracture level: unspecified lumbar vertebra Elevated troponin I level R77.8 Aortic stenosis I35.0 HTN (hypertension) I10 COPD (chronic obstructive pulmonary disease) J44.9 Hyperlipidemia E78.5 Hx of anxiety disorder Z86.59 Non-Hodgkin lymphoma C85.90 Anemia D64.9 Hyponatremia E87.1 (1) Compression fx, lumbar spine Encounter type: initial encounter Lumbar vertebra fracture level: unspecified lumbar vertebra Qualified Code(s): S32.000A - Wedge compression fracture of unspecified lumbar vertebra, initial encounter for closed fracture
[2022-07-17] MEDS: ENOXAPARIN INJ 40 MG/0.4 ML SYR SQ SCH (17:27)
[2022-07-17] MEDS: GABAPENTIN 100 MG CAP PO SCH (20:24)
[2022-07-18] MEDS: ACETAMINOPHEN 325 MG TAB PO SCH ×3 (05:46→21:16)
[2022-07-18] MEDS: CHOLECALCIFEROL 1,000 UNITS 25 MCG TAB PO SCH (08:36)
[2022-07-18] MEDS: ENALAPRIL MALEATE 10 MG TAB PO SCH (08:36)
[2022-07-18] MEDS: DULoxetine HCL 30 MG CAP PO SCH (08:36)
[2022-07-18] MEDS: METOPROLOL TARTRATE 50 MG TAB PO SCH ×2 (08:36→21:11)
[2022-07-18] MEDS: ATORVASTATIN 40 MG TAB PO SCH (08:36)
[2022-07-18] MEDS: LIDOCAINE 5% 1 PATCH TD SCH (08:36)
[2022-07-18] MEDS: amLODIPine BESYLATE 5 MG TAB PO SCH (08:36)
[2022-07-18] MEDS: CEROVITE ADV FORMULA TAB PO SCH (08:36)
[2022-07-18] MEDS: SPIRONOLACTONE 12.5 MG TAB PO SCH (08:36)
[2022-07-18] MEDS: ZINC SULFATE 220 MG CAPSULE PO SCH (08:36)
[2022-07-18] MEDS: CALCITONIN SALMON NA 200 IU/AC 3.7 ML BTL SCH (08:37)
[2022-07-18] MEDS: ALPRAZolam 0.5 MG TABLET PO SCH ×2 (08:41→21:11)
[2022-07-18] MEDS: traMADol HCL 50 MG TABLET PO SCH ×4 (08:41→21:11)
--- NOTE | 2022-07-18 10:12 | Discharge Summary ---
Date of Service July 18, 2022 Admission HPI Per Admitting Provider Payton Doan is an 86-year-old female with past medical history significant for mixed obstructive and restrictive lung disease, carotid artery stenosis, hypertension, hyperlipidemia, anxiety, and non-Hodgkin lymphoma who is presenting today after a fall. Resides in the [facility]. She was trying to get off a chair to sleep up some cookie crumbs when she slid off the chair and landed on her back last evening and has been on the ground since then when she was found this way this morning. She states the fall happened because she got tripped up, denies any lightheadedness, dizziness, chest pain, palpitations before, during, or after the fall. Current complaints are of low back pain and bilateral leg weakness. She typically ambulates with a walker, however since the fall has been able to crawl on the ground but cannot stand on her 2 feet due to the weakness. She not having any acute numbness in her groin, focal weakness in either leg, urinary or bowel incontinence/rete ntion. On presentation she is hypertensive 213/76, otherwise vital signs are within normal limits. Labs largely unremarkable, other than CK 682 and troponin 30.7. Lumbar CT shows age-indeterminate 50% superior endplate compression deformity at L5 with mild retropulsion, this is an area of patient stated back pain. There is also severe central canal stenosis at L4-L5 which is mildly progressed from 2019, chronic L1 and L3 compression deformities. CXR, head CT, and cervical spine CT all unremarkable for acute disease process. There is a stable 11 mm right middle lobe pulmonary nodule and emphysema, cardiomegaly noted on CXR. Principal Diagnosis Lumbar stenosis, neurogenic claudication Discharge Exam General-alert and oriented x3, no fevers, no chills HEENT-head atraumatic and normocephalic, pupils equal and reactive to light, extraocular muscles intact Neck-no lymphadenopathy or thyromegaly, trachea midline Chest-clear to auscultation percussion. No rales wheezing or rhonchi Cardiac-regular rate and rhythm, normal S1 and S2 Abdomen-normal bowel sounds, nontender, no hepatosplenomegaly Extremities-no cyanosis, clubbing, or edema Neuro-bilateral lower extremity weakness. Psych-normal affect, normal mood Discharge Data Allergies Allergy/AdvReac Type Severity Reaction Status Date / Time No Known Allergies Allergy Unverified 07/15/22 16:16 Consultations 07/15/22 15:14 ED Decision to Admit Stat 07/16/22 08:47 Consult Orthopedic Surgery Routine Ordered Studies 07/15/22 12:11 CT cervical spine wo con Stat CT head/brain wo con Stat CT lumbar spine wo con Stat 07/16/22 11:55 MR lumbar spine wo con Routine Hospital Course (1) Compression fx, lumbar spine: Lumbar MRI scan is negative for acute fracture. She does have chronic findings however. Presented with acute worsening of chronic lumbar back pain. Lumbar CT: Age-indeterminate 50% superior endplate compression deformity of L5 with mild retropulsion, new from 04/15/2019. Severe central canal stenosis at L4-L5 has mildly progressed from 04/15/2019 exam. Chronic L1 / L2 compression deformities. Currently on Calcitonin spray daily, lidocaine patches, Tylenol and Toradol for pain control. Ortho Spine consult appreciated. No indication for surgery at this time. (2) Elevated troponin I level: Mild. No evidence of acute coronary syndrome. Cardiac echo negative for regional wall motion abnormalities. (3) Aortic stenosis: Moderate to severe on cardiac echo. No intervention necessary at this time. (4) HTN (hypertension): Continue amlodipine, metoprolol, spironolactone. (5) COPD (chronic obstructive pulmonary disease): Mixed obstructive and restrictive lung disease, no acute exacerbation evident. Stable on current medication. (6) Hyperlipidemia: Continue atorvastatin. Low-cholesterol diet (7) Hx of anxiety disorder: Xanax as needed (8) Non-Hodgkin lymphoma: History of non-Hodgkin lymphoma. Has deferred additional work-up and management. (9) Anemia: Chronic, with baseline Hgb ~11. No sign of acute blood loss. (10) Hyponatremia: Mild. No intervention needed. Serial labs Plan discharge to [facility] for rehab today, July 18. Total Time Total Time Spent Total Time Spent (In Minutes): 35 minutes Discharge Plan Discharge Items Patient Disposition: Transfer [facility] Reason For Visit: L5 COMPRESSION FRACTURE Discharge Diagnosis: Neurogenic claudication, lumbar stenosis Activity: Resume your previous activity Non-emergency contact: Primary Care Provider Call non-emergency contact if: you have any medication questions and your symptoms worsen Follow-up/Referrals: Bambi Salgado [Primary Care Provider] - Diet: Heart Healthy Addtl Attending Provider Instructions: Medications remain the same Pending Studies at Discharge: No Stand-Alone Forms: My [facility] Skilled Items Patient informed of condition?: Yes DNR: Yes Discharge Level of Care: Skilled Communicable Disease: No Discharge Prognosis: Stable Lines: None Urinary Catheter: No Medications and DC Order Prescriptions: New calcitonin (salmon) 200 unit/actuation [place],Non-Aerosol 1 spray NA DAILY Qty: 30 0RF lidocaine 5 % Adhesive Patch,Medicated 1 patch transdermal QAM Qty: 10 0RF duloxetine 30 mg Capsule,Delayed Release(Dr/Ec) 30 mg PO DAILY Qty: 10 0RF Cerovite Senior 0.4 mg-300 mcg- 250 mcg Tablet 1 tab PO DAILY Qty: 30 0RF zinc sulfate [Orazinc] 50 mg zinc (220 mg) Capsule 220 mg PO DAILY Qty: 10 0RF Continued atorvastatin [Lipitor] 40 mg tablet 40 mg PO DAILY tramadol 50 mg tablet 50 mg PO QID Label Comments: take 1-2 tabs up to 4 times daily as needed for pain cholecalciferol (vitamin D3) 1,000 unit capsule 3,000 units PO DAILY nebivolol [Bystolic] 10 mg tablet 10 mg PO DAILY alprazolam 0.5 mg tablet 0.5 mg PO BID spironolactone 25 mg tablet 12.5 mg PO DAILY gabapentin 100 mg capsule 100 mg PO HS gabapentin 100 mg capsule 100 mg PO DAILY PRN (Reason: Itching) Rx Instructions: may take during the day for itching albuterol sulfate 90 mcg/actuation HFA aerosol inhaler 2 puff INHALATION Q6 PRN (Reason: wheezing,SOB,chest tightness) amlodipine-benazepril 5-40 mg capsule 1 cap PO DAILY acetaminophen [Tylenol Extra Strength] 500 mg Tablet 1,000 mg PO QID Rx Instructions: take with tramadol Discharge Orders: Discharge Order (Routine); Ordered 07/18/22 Ordered By: Xu Guidry Admission Data Admit Date/Time: 07/15/22 15:26 Attending Provider: Xu Guidry Admit Provider: Constantino Michael Primary Care Provider: Bambi Salgado Other Providers: Constantino Michael ; Bo Mckeon Coding Level of Care Code HOSP INP/OBS DISCH >30 MIN Diagnoses Compression fx, lumbar spine S32.000A Encounter type: initial encounter Lumbar vertebra fracture level: unspecified lumbar vertebra Elevated troponin I level R77.8 Aortic stenosis I35.0 HTN (hypertension) I10 COPD (chronic obstructive pulmonary disease) J44.9 Hyperlipidemia E78.5 Hx of anxiety disorder Z86.59 Non-Hodgkin lymphoma C85.90 Anemia D64.9 Hyponatremia E87.1
[2022-07-18] MEDS ORDERED: hydrALAZINE HCL 20 MG/ML VIAL IV STA (17:13)
[2022-07-18] MEDS: ENOXAPARIN INJ 40 MG/0.4 ML SYR SQ SCH (17:20)
[2022-07-18] MEDS: GABAPENTIN 100 MG CAP PO SCH (21:11)
[2022-07-19] MEDS ORDERED: hydrALAZINE HCL 20 MG/ML VIAL IV STA (03:46)
[2022-07-19] MEDS: ACETAMINOPHEN 325 MG TAB PO SCH (06:33)
[2022-07-19] MEDS: CALCITONIN SALMON NA 200 IU/AC 3.7 ML BTL SCH (08:11)
[2022-07-19] MEDS: LIDOCAINE 5% 1 PATCH TD SCH (08:11)
[2022-07-19] MEDS: CHOLECALCIFEROL 1,000 UNITS 25 MCG TAB PO SCH (08:12)
[2022-07-19] MEDS: ALPRAZolam 0.5 MG TABLET PO SCH (08:12)
[2022-07-19] MEDS: amLODIPine BESYLATE 5 MG TAB PO SCH (08:12)
[2022-07-19] MEDS: DULoxetine HCL 30 MG CAP PO SCH (08:12)
[2022-07-19] MEDS: METOPROLOL TARTRATE 50 MG TAB PO SCH (08:12)
[2022-07-19] MEDS: ATORVASTATIN 40 MG TAB PO SCH (08:12)
[2022-07-19] MEDS: traMADol HCL 50 MG TABLET PO SCH (08:12)
[2022-07-19] MEDS: ZINC SULFATE 220 MG CAPSULE PO SCH (08:12)
[2022-07-19] MEDS: ENALAPRIL MALEATE 10 MG TAB PO SCH (08:12)
[2022-07-19] MEDS: SPIRONOLACTONE 12.5 MG TAB PO SCH (08:12)
[2022-07-19] MEDS: CEROVITE ADV FORMULA TAB PO SCH (08:12)
--- NOTE | 2022-07-19 10:32 | Hospitalist Progress Note ---
Date of Service July 19, 2022 Assessment & Plan (1) Compression fx, lumbar spine: Plan: Lumbar MRI scan is negative for acute fracture. She does have chronic findings however. Presented with acute worsening of chronic lumbar back pain. Lumbar CT: Age-indeterminate 50% superior endplate compression deformity of L5 with mild retropulsion, new from 04/15/2019. Severe central canal stenosis at L4-L5 has mildly progressed from 04/15/2019 exam. Chronic L1 / L2 compression deformities. Currently on Calcitonin spray daily, lidocaine patches, Tylenol and Toradol for pain control. Ortho Spine consult appreciated. No indication for surgery at this time. (2) Elevated troponin I level: Plan: Mild. No evidence of acute coronary syndrome. Cardiac echo negative for regional wall motion abnormalities. (3) Aortic stenosis: Plan: Moderate to severe on cardiac echo. No intervention necessary at this time. (4) HTN (hypertension): Plan: Continue amlodipine, metoprolol, spironolactone. Hydralazine added for better control since she needed IV hydralazine last evening on July 18 (5) COPD (chronic obstructive pulmonary disease): Plan: Mixed obstructive and restrictive lung disease, no acute exacerbation evident. Stable on current medication. (6) Hyperlipidemia: Plan: Continue atorvastatin. Low-cholesterol diet (7) Hx of anxiety disorder: Plan: Xanax as needed (8) Non-Hodgkin lymphoma: Plan: History of non-Hodgkin lymphoma. Has deferred additional work-up and m anagement. (9) Anemia: Plan: Chronic, with baseline Hgb ~11. No sign of acute blood loss. (10) Hyponatremia: Plan: Mild. No intervention needed. Serial labs Plan discharge to [facility] for rehab today, July 19. Admission and Anticipated Discharge Date Admission Date: July 15, 2022 Subjective Alert and oriented. No new problems. Hydralazine started for elevated blood pressure. She has required intravenous hydralazine last evening. [facility] will be [facility] today[facility] 19 Review of Systems Review of Systems: Constitutional-no fever or chills ENT-no blurred vision, no double vision, no epistaxis, no sore throat Respiratory-no cough, no wheezing, no shortness of breath Cardiac-no palpitations, no chest pain, no syncope GI-no nausea, vomiting, diarrhea, melena, hematochezia -no urinary retention, no urinary incontinence, no dysuria, no hematuria Musculoskeletal-no joint pain, no muscle tenderness. Bilateral lower extremity weakness Skin-no bruising, no rashes, no pruritus Neuro-bilateral lower extremity weakness Psych-no depression, no anxiety Physical Exam Physical Exam: General-alert and oriented x3, no fevers, no chills HEENT-head atraumatic and normocephalic, pupils equal and reactive to light, extraocular muscles intact Neck-no lymphadenopathy or thyromegaly, trachea midline Chest-clear to auscultation percussion. No rales wheezing or rhonchi Cardiac-regular rate and rhythm, normal S1 and S2 Abdomen-normal bowel sounds, nontender, no hepatosplenomegaly Extremities-no cyanosis, clubbing, or edema Neuro-bilateral lower extremity weakness. Psych-normal affect, normal mood Results & Data Results & Data ([facility]) Vital Signs (Past 12 Hours) Vital Signs Temp Pulse Pulse Resp BP Pulse Ox O2 Del Method 07/19/22 08:45 Room Air 07/19/22 07:47 37.5 C 88 20 140/72 98 Room Air 07/19/22 05:07 75 18 171/67 H 95 Room Air 07/19/22 03:40 36.6 C 75 18 213/68 H 95 Room Air 07/18/22 23:18 36.8 C 67 20 179/66 H 93 Room Air Laboratory Results 07/17/22 07:40 07/17/22 07:40 PG Care Time/CCT Total # of Minutes Spent Total Time Spent with Patient: Total time spent is greater than 50% in coordination of care (as documented) at patient's floor/unit and/or counseling patient: Coding Level of Care Code 61893 SUB INP/OBS CARE 3/50MIN Diagnoses Compression fx, lumbar spine S32.000A Encounter type: initial encounter Lumbar vertebra fracture level: unspecified lumbar vertebra Elevated troponin I level R77.8 Aortic stenosis I35.0 HTN (hypertension) I10 COPD (chronic obstructive pulmonary disease) J44.9 Hyperlipidemia E78.5 Hx of anxiety disorder Z86.59 Non-Hodgkin lymphoma C85.90 Anemia D64.9 Hyponatremia E87.1 (1) Compression fx, lumbar spine Encounter type: initial encounter Lumbar vertebra fracture level: unspecified lumbar vertebra Qualified Code(s): S32.000A - Wedge compression fracture of unspecified lumbar vertebra, initial encounter for closed fracture
--- NOTE | 2022-07-19 10:34 | Discharge Summary ---
Date of Service July 19, 2022 Admission HPI Per Admitting Provider Payton Doan is an 86-year-old female with past medical history significant for mixed obstructive and restrictive lung disease, carotid artery stenosis, hypertension, hyperlipidemia, anxiety, and non-Hodgkin lymphoma who is presenting today after a fall. Resides in the [facility]. She was trying to get off a chair to sleep up some cookie crumbs when she slid off the chair and landed on her back last evening and has been on the ground since then when she was found this way this morning. She states the fall happened because she got tripped up, denies any lightheadedness, dizziness, chest pain, palpitations before, during, or after the fall. Current complaints are of low back pain and bilateral leg weakness. She typically ambulates with a walker, however since the fall has been able to crawl on the ground but cannot stand on her 2 feet due to the weakness. She not having any acute numbness in her groin, focal weakness in either leg, urinary or bowel incontinence/rete ntion. On presentation she is hypertensive 213/76, otherwise vital signs are within normal limits. Labs largely unremarkable, other than CK 682 and troponin 30.7. Lumbar CT shows age-indeterminate 50% superior endplate compression deformity at L5 with mild retropulsion, this is an area of patient stated back pain. There is also severe central canal stenosis at L4-L5 which is mildly progressed from 2019, chronic L1 and L3 compression deformities. CXR, head CT, and cervical spine CT all unremarkable for acute disease process. There is a stable 11 mm right middle lobe pulmonary nodule and emphysema, cardiomegaly noted on CXR. Principal Diagnosis Suspected neurogenic claudication, lumbar stenosis without fracture, uncontrolled hypertension Discharge Exam General-alert and oriented x3, no fevers, no chills HEENT-head atraumatic and normocephalic, pupils equal and reactive to light, e xtraocular muscles intact Neck-no lymphadenopathy or thyromegaly, trachea midline Chest-clear to auscultation percussion. No rales wheezing or rhonchi Cardiac-regular rate and rhythm, normal S1 and S2 Abdomen-normal bowel sounds, nontender, no hepatosplenomegaly Extremities-no cyanosis, clubbing, or edema. Bilateral lower extremity weakness which is chronic Neuro-cranial nerves II through XII intact, motor and sensory function within normal limits, strength symmetrical , no focal deficits Psych-normal affect, normal mood Discharge Data Allergies Allergy/AdvReac Type Severity Reaction Status Date / Time No Known Allergies Allergy Unverified 07/15/22 16:16 Consultations 07/15/22 15:14 ED Decision to Admit Stat 07/16/22 08:47 Consult Orthopedic Surgery Routine Ordered Studies 07/15/22 12:11 CT cervical spine wo con Stat CT head/brain wo con Stat CT lumbar spine wo con Stat 07/16/22 11:55 MR lumbar spine wo con Routine Total Time Total Time Spent Total Time Spent (In Minutes): 35 minutes Discharge Plan Discharge Items Patient Disposition: Transfer Long Term Fac Reason For Visit: L5 COMPRESSION FRACTURE Discharge Diagnosis: Neurogenic claudication, lumbar stenosis Activity: Resume your previous activity Non-emergency contact: Primary Care Provider Call non-emergency contact if: you have any medication questions and your symptoms worsen Follow-up/Referrals: Bambi Salgado [Primary Care Provider] - Diet: Heart Healthy Addtl Attending Provider Instructions: Medications remain the same Pending Studies at Discharge: No Stand-Alone Forms: My [facility] Skilled Items Patient informed of condition?: Yes DNR: Yes Discharge Level of Care: Skilled Communicable Disease: No Discharge Prognosis: Stable Lines: None Urinary Catheter: No Medications and DC Order Prescriptions: New calcitonin (salmon) 200 unit/actuation [place],Non-Aerosol 1 spray NA DAILY Qty: 30 0RF lidocaine 5 % Adhesive Patch,Medicated 1 patch transdermal QAM Qty: 10 0RF duloxetine 30 mg Capsule,Delayed Release(Dr/Ec) 30 mg PO DAILY Qty: 10 0RF Cerovite Senior 0.4 mg-300 mcg- 250 mcg Tablet 1 tab PO DAILY Qty: 30 0RF zinc sulfate [Orazinc] 50 mg zinc (220 mg) Capsule 220 mg PO DAILY Qty: 10 0RF hydralazine 25 mg Tablet 25 mg PO QID Qty: 100 0RF calcitonin (salmon) 200 unit/actuation spray,non-aerosol 1 spray intranasal (ALT) DAILY Qty: 3.7 0RF lidocaine [Lidoderm] 5 % adhesive patch,medicated 1 patch topical DAILY Qty: 15 0RF Rx Instructions: leave on most painful area for up to 12 hrs Continued atorvastatin [Lipitor] 40 mg tablet 40 mg PO DAILY tramadol 50 mg tablet 50 mg PO QID Label Comments: take 1-2 tabs up to 4 times daily as needed for pain cholecalciferol (vitamin D3) 1,000 unit capsule 3,000 units PO DAILY nebivolol [Bystolic] 10 mg tablet 10 mg PO DAILY alprazolam 0.5 mg tablet 0.5 mg PO BID spironolactone 25 mg tablet 12.5 mg PO DAILY gabapentin 100 mg capsule 100 mg PO HS gabapentin 100 mg capsule 100 mg PO DAILY PRN (Reason: Itching) Rx Instructions: may take during the day for itching albuterol sulfate 90 mcg/actuation HFA aerosol inhaler 2 puff INHALATION Q6 PRN (Reason: wheezing,SOB,chest tightness) amlodipine-benazepril 5-40 mg capsule 1 cap PO DAILY acetaminophen [Tylenol Extra Strength] 500 mg Tablet 1,000 mg PO QID Rx Instructions: take with tramadol Discharge Orders: Discharge Order (Routine); Ordered 07/19/22 Ordered By: Xu Leyva/Other Patient Handouts: Low Back Leg Pain Causes, Compression Fx, Hyponatremia Dc Admission Data Admit Date/Time: 07/15/22 15:26 Attending Provider: Xu Guidry Admit Provider: Constantino Michael Primary Care Provider: Bambi Salgado Other Providers: Constantino Michael ; Bo Mckeon Other Interventions: Discharge Summary Assessment (RN) Last Done: 07/18/22 10:21 Coding Level of Care Code HOSP INP/OBS DISCH >30 MIN
--- NOTE | 2022-07-19 10:44 | Discharge Summary ---
Date of Service July 19, 2022 Admission HPI Per Admitting Provider Payton Doan is an 86-year-old female with past medical history significant for mixed obstructive and restrictive lung disease, carotid artery stenosis, hypertension, hyperlipidemia, anxiety, and non-Hodgkin lymphoma who is presenting today after a fall. Resides in the [place] [facility]. She was trying to get off a chair to sleep up some cookie crumbs when she slid off the chair and landed on her back last evening and has been on the ground since then when she was found this way this morning. She states the fall happened because she got tripped up, denies any lightheadedness, dizziness, chest pain, palpitations before, during, or after the fall. Current complaints are of low back pain and bilateral leg weakness. She typically ambulates with a walker, however since the fall has been able to crawl on the ground but cannot stand on her 2 feet due to the weakness. She not having any acute numbness in her groin, focal weakness in either leg, urinary or bowel incontinence/rete ntion. On presentation she is hypertensive 213/76, otherwise vital signs are within normal limits. Labs largely unremarkable, other than CK 682 and troponin 30.7. Lumbar CT shows age-indeterminate 50% superior endplate compression deformity at L5 with mild retropulsion, this is an area of patient stated back pain. There is also severe central canal stenosis at L4-L5 which is mildly progressed from 2019, chronic L1 and L3 compression deformities. CXR, head CT, and cervical spine CT all unremarkable for acute disease process. There is a stable 11 mm right middle lobe pulmonary nodule and emphysema, cardiomegaly noted on CXR. Principal Diagnosis Neurogenic claudication, lumbar stenosis Discharge Data Allergies Allergy/AdvReac Type Severity Reaction Status Date / Time No Known Allergies Allergy Unverified 07/15/22 16:16 Consultations 07/15/22 15:14 ED Decision to Admit Stat 07/16/22 08:47 Consult Orthopedic Surgery Routine Ordered Studies 07/15/22 12:11 CT cervical spine wo con Stat CT head/brain wo con Stat CT lumbar spine wo con Stat 07/16/22 11:55 MR lumbar spine wo con Routine Total Time Total Time Spent Total Time Spent (In Minutes): 35 minutes Discharge Plan Discharge Items Patient Disposition: Transfer Retirement Fac Reason For Visit: L5 COMPRESSION FRACTURE Discharge Diagnosis: Neurogenic claudication, lumbar stenosis Activity: Resume your previous activity Non-emergency contact: Primary Care Provider Call non-emergency contact if: you have any medication questions and your symptoms worsen Follow-up/Referrals: Bambi Salgado [Primary Care Provider] - Diet: Heart Healthy Addtl Attending Provider Instructions: Medications remain the same Pending Studies at Discharge: No Stand-Alone Forms: My [facility] Skilled Items Patient informed of condition?: Yes DNR: Yes Discharge Level of Care: Skilled Communicable Disease: No Discharge Prognosis: Stable Lines: None Urinary Catheter: No Medications and DC Order Prescriptions: New calcitonin (salmon) 200 unit/actuation [place],Non-Aerosol 1 spray NA DAILY Qty: 30 0RF lidocaine 5 % Adhesive Patch,Medicated 1 patch transdermal QAM Qty: 10 0RF duloxetine 30 mg Capsule,Delayed Release(Dr/Ec) 30 mg PO DAILY Qty: 10 0RF Cerovite Senior 0.4 mg-300 mcg- 250 mcg Tablet 1 tab PO DAILY Qty: 30 0RF zinc sulfate [Orazinc] 50 mg zinc (220 mg) Capsule 220 mg PO DAILY Qty: 10 0RF hydralazine 25 mg Tablet 25 mg PO QID Qty: 100 0RF calcitonin (salmon) 200 unit/actuation spray,non-aerosol 1 spray intranasal (ALT) DAILY Qty: 3.7 0RF lidocaine [Lidoderm] 5 % adhesive patch,medicated 1 patch topical DAILY Qty: 15 0RF Rx Instructions: leave on most painful area for up to 12 hrs Continued atorvastatin [Lipitor] 40 mg tablet 40 mg PO DAILY tramadol 50 mg tablet 50 mg PO QID Label Comments: take 1-2 tabs up to 4 times daily as needed for pain cholecalciferol (vitamin D3) 1,000 unit capsule 3,000 units PO DAILY nebivolol [Bystolic] 10 mg tablet 10 mg PO DAILY alprazolam 0.5 mg tablet 0.5 mg PO BID spironolactone 25 mg tablet 12.5 mg PO DAILY gabapentin 100 mg capsule 100 mg PO HS gabapentin 100 mg capsule 100 mg PO DAILY PRN (Reason: Itching) Rx Instructions: may take during the day for itching albuterol sulfate 90 mcg/actuation HFA aerosol inhaler 2 puff INHALATION Q6 PRN (Reason: wheezing,SOB,chest tightness) amlodipine-benazepril 5-40 mg capsule 1 cap PO DAILY acetaminophen [Tylenol Extra Strength] 500 mg Tablet 1,000 mg PO QID Rx Instructions: take with tramadol Discharge Orders: Discharge Order (Routine); Ordered 07/19/22 Ordered By: Xu Leyva/Other Patient Handouts: Low Back Leg Pain Causes, Compression Fx, Hyponatremia Dc Admission Data Admit Date/Time: 07/15/22 15:26 Attending Provider: Xu Guidry Admit Provider: Constantino Michael Primary Care Provider: Bambi Salgado Other Providers: Constantino Michael ; Bo Mckeon Other Interventions: Discharge Summary Assessment (RN) Last Done: 07/18/22 10:21 Coding Level of Care Code HOSP INP/OBS DISCH >30 MIN
[2022-07-19] MEDS ORDERED: hydrALAZINE HCL 25 MG TAB PO SCH (13:00)
== END 2022-07-19 11:40 | DRG 552 ==
LOC: ED 12:04 → SUATTDRO 15:26 → 2W 15:26